=== PATIENT | female | born 1985 | race Caucasian/White ===

== ENCOUNTER 2016-08-03 13:32 | Emergency (ER) | payer MEDICAID ==
[~2016-08-03] VITALS: Ht 149.9 cm; Wt 72.5 kg
[~2016-08-03 13:32] MED LIST: BEN50 PO; HYDR2TAB3 PO; LORA1TAB PO; PRED10TA PO
[2016-08-03 13:33] VITALS: Ht 149.9 cm; Wt 72.5 kg
[2016-08-03] MEDS ORDERED: SOD CHLORIDE 0.9% 1,000 ML IV STA (14:45)
[2016-08-03] MEDS ORDERED: HYDROmorphONE 1 MG/ML SYG IV STA (14:45)
[2016-08-03] MEDS ORDERED: DIPHENHYDRAMINE 50 MG INJ IV STA (14:45)
[2016-08-03] MEDS ORDERED: DEXAMETHASONE 10 MG/ML 1 ML INJ IV ONE (15:00)
[2016-08-03] MEDS ORDERED: HYDROmorphONE 1 MG/ML SYG IM STA (16:02)
[2016-08-03] MEDS ORDERED: DIPHENHYDRAMINE 50 MG INJ ONE (16:04)
[2016-08-03] MEDS ORDERED: DEXAMETHASONE 10 MG/ML 1 ML INJ ONE (16:05)
[2016-08-03] MEDS ORDERED: HYDROmorphONE 1 MG/ML SYG ONE (16:05)
[2016-08-03] MEDS ORDERED: DIPHENHYDRAMINE 50 MG INJ IM ONE (16:30)
[2016-08-03] MEDS ORDERED: DEXAMETHASONE 10 MG/ML 1 ML INJ IM ONE (16:30)
[2016-08-03 17:00] VITALS: BP 122/86; PULSE 86; RESP 18
--- NOTE | 2016-08-03 17:01 | ERD ---
ER Documentation Chief Complaint Date/Time DATE: 08/03/16 TIME: 16:56 Chief Complaint HEADACHE 10/10 PAIN STARTING LAST NIGHT. HPI 31-year-old female with a past medical history of Temporal arteritis, Hodgkin's lymphoma, seizures presents to the ED complaining of a headache predominantly on the right temporal region. Reports that she feels like the right temples are getting swollen. States that the pain is worse when she is taking a warm shower. Describes a sensation as a luggage type of feeling and rates it a 10 out of 10. Reports that this feels like her exacerbation of her temporal arteritis. Denies any head or neck injuries. Denies any loss of consciousness. States that when she does get an exacerbation usually 1 mg Dilaudid, 10 mg Decadron and 50 mg Benadryl usually resolves her pain. Denies any fever, chills, neck stiffness, neck pain, shortness of breath, chest pain. Reports that she has prednisone at home. ROS All systems reviewed and are negative except as per history of present illness. Medications Home Meds Reported Medications Lorazepam* (Lorazepam*) 1 Mg Tablet, 1 MG PO HS Y for ANXIETY, #30 TAB 04/30/16 Prednisone* (Prednisone*) 10 Mg Tab, 10 MG PO, TAB 04/30/16 Hydromorphone Hcl* (Hydromorphone Hcl*) 2 Mg Tablet, 2 MG PO Q8 Y for PAIN, TAB 03/28/16 Diphenhydramine Hcl* (Benadryl*) 50 Mg Cap, 50 MG PO Q8 Y for ITCHING, CAP 03/28/16 Allergies Allergies: Coded Allergies: prochlorperazine (Verified Allergy, Severe, 04/30/16) metoclopramide HCl (Verified Allergy, Unknown, ANAPHYLACTIC, 04/30/16) topiramate (Verified Allergy, Unknown, ANAPHYLACTIC, 04/30/16) methylprednisolone (Verified Adverse Reaction, Unknown, pt. states tremayne arm numbness, 08/03/16) PMhx/Soc History of Surgery: Yes (Craniotomy, X2,Biopsy) Anesthesia Reaction: No Hx Neurological Disorder: Yes (Temporal Arteritis) Hx Respiratory Disorders: No Hx Cardiac Disorders: No Hx Psychiatric Problems: No Hx Miscellaneous Medical Probl: Yes (hx Hodgkin's Lymphoma,Chemo/Rad Txs) Hx Alcohol Use: No Hx Substance Use: No Hx Tobacco Use: No Physical Exam Vitals Vital Signs Date Time Temp Pulse Resp B/P Pulse Ox O2 Delivery O2 Flow Rate FiO2 08/03/16 17:00 86 18 122/86 99 Room Air 08/03/16 13:33 98.7 87 16 126/87 100 Physical Exam Const: [id number], well-nourished. In no acute distress. Head: Atraumatic, normocephalic Eyes: Normal Conjunctiva without injection. No purulent discharge. PERRLA. EOMI ENT: Normal external ear. Ear canal without erythema. Tympanic membrane pearly montano without effusion or bulging. Nasal canal clear with normal turbinates. Moist oropharynx without tonsillar exudates. Non-erythematous pharynx. Uvula midline. No drooling. No trismus. Neck: No cervical midline tenderness. Full range of motion. No meningismus. No cervical lymphadenopathy. No JVD. Resp: Clear to auscultation bilaterally. No wheezing, rhonchi, rales, or crackles. No accessory muscle use. No retractions. Cardio: Regular rate and rhythm. No murmurs, rubs or gallops. Abd: Soft, non tender, non distended. Normal bowel sounds. No palpable masses. No rebound tenderness. No guarding. Negative McBurney's Point. Negative Rodríguez's Sign. Skin: Normal skin turgor. No petechiae or rashes Back: No midline tenderness. No CVA tenderness. Ext: No cyanosis, or edema. Distal pulses intact bilaterally. Neur: Awake and alert. Normal gait. Normal coordination. Cranial Nerves II- VII intact. Normal finger to nose. Muscle strength 5/5. Sensation intact. Psych: Normal Mood and Affect Results 24 hrs Current Medications Medications (Trade) Dose Ordered Sig/Dedra Route PRN Reason Start Time Stop Time Status Last Admin Dose Admin Sodium Chloride (NS) 1,000 ml @ 1,000 mls/hr Q1H STAT IV 08/03/16 14:45 08/03/16 15:44 Cancel Hydromorphone HCl (Dilaudid) 1 mg ONCE STAT IV 08/03/16 14:45 08/03/16 14:46 Cancel Diphenhydramine HCl (Benadryl) 25 mg ONCE STAT IV 08/03/16 14:45 08/03/16 14:46 Cancel Dexamethasone (Decadron) 10 mg ONCE ONCE IV 08/03/16 15:00 08/03/16 15:01 Cancel Diphenhydramine HCl (Benadryl) 25 mg ONCE ONCE IM 08/03/16 16:30 08/03/16 16:31 DC 08/03/16 16:09 Dexamethasone (Decadron) 10 mg ONCE ONCE IM 08/03/16 16:30 08/03/16 16:31 DC 08/03/16 16:09 Hydromorphone HCl (Dilaudid) 1 mg ONCE STAT IM 08/03/16 16:02 08/03/16 16:04 DC 08/03/16 16:10 Diphenhydramine HCl (Benadryl) 50 mg STK-MED ONCE .ROUTE 08/03/16 16:04 08/05/16 16:26 DC Hydromorphone HCl (Dilaudid) 1 mg STK-MED ONCE .ROUTE 08/03/16 16:05 08/05/16 16:26 DC Dexamethasone (Decadron) 10 mg STK-MED ONCE .ROUTE 08/03/16 16:05 08/05/16 16:26 DC Procedures/MDM 31-year-old female with a past medical history of seizures, temporal arteritis, Hodgkin's Lymphoma presents the ED complaining of a headache that feels like an exacerbation of her temporal arteritis. Patient is afebrile and nontoxic- appearing. Patient has normal vital signs. At this time the nurses attempted to put an IV line into patient for the orders of IV Benadryl, Decadron, Dilaudid. However it was difficult for an IV to be started for this patient. Therefore the orders were changed to IM. This treatment improved patient's symptoms. Reports that she has prednisone at home. Low suspicion for intracranial bleed, seizures, meningitis, TIA, stroke, subarachnoid hemorrhage, epidural hematoma, subdural hematoma or other emergent conditions. Discharge medications: Patient stated that she has prednisone at home. This was discussed with my supervising physician, Dr. Avitia. Stated that patient can be managed on outpatient basis. Follow up with primary care physician in 1-2 days for a referral to a neurologist. Instructed patient to return to the ED sooner for any worsening symptoms. Patient's questions were answered. Patient understood and agreed with discharge plan. Patient discharged stable. Departure Diagnosis: Primary Impression: Headache Headache type: unspecified Headache chronicity pattern: unspecified pattern Intractability: not intractable Qualified Code: R51 - Nonintractable headache, unspecified chronicity pattern, unspecified headache type Condition: Stable Patient Instructions: Headache, Unspecified, Temporal Arteritis Referrals: FOR[facility], [facility] YOU HAVE RECEIVED A MEDICAL SCREENING EXAM AND THE RESULTS INDICATE THAT YOU DO NOT HAVE A CONDITION THAT REQUIRES URGENT TREATMENT IN THE EMERGENCY DEPARTMENT. FURTHER EVALUATION AND TREATMENT OF YOUR CONDITION CAN WAIT UNTIL YOU ARE SEEN IN YOUR DOCTORS OFFICE WITHIN THE NEXT 1-2 DAYS. IT IS YOUR RESPONSIBILITY TO MAKE AN APPOINTMENT FOR FOLOW-UP CARE. IF YOU HAVE A PRIMARY DOCTOR --you should call your primary doctor and schedule an appointment IF YOU DO NOT HAVE A PRIMARY DOCTOR YOU CAN CALL OUR PHYSICIAN REFERRAL HOTLINE AT IF YOU CAN NOT AFFORD TO SEE A PHYSICIAN YOU CAN CHOSE FROM THE FOLLOWING [facility] [address] [facility] [address] [employer] [facility] [address] [facility] [address] [facility] [address] [facility] [facility] [address] [facility]. [facility] YOU HAVE RECEIVED A MEDICAL SCREENING EXAM AND THE RESULTS INDICATE THAT YOU DO NOT HAVE A CONDITION THAT REQUIRES URGENT TREATMENT IN THE EMERGENCY DEPARTMENT. FURTHER EVALUATION AND TREATMENT OF YOUR CONDITION CAN WAIT UNTIL YOU ARE SEEN IN YOUR DOCTORS OFFICE WITHIN THE NEXT 1-2 DAYS. IT IS YOUR RESPONSIBILITY TO MAKE AN APPOINTMENT FOR FOLOW-UP CARE. IF YOU HAVE A PRIMARY DOCTOR --you should call your primary doctor and schedule and appointment IF YOU DO NOT HAVE A PRIMARY DOCTOR YOU CAN CALL OUR PHYSICIAN REFERRAL HOTLINE AT . IF YOU CAN NOT AFFORD TO SEE A PHYSICIAN YOU CAN CHOSE FROM THE FOLLOWING [facility] INSTITUTIONS: [address] [place] [address] [facility] [address] [place] [address] [facility] + [facility] [address] [place] [address] [facility] URGENT CARE/SPECIALTIES Additional Instructions: FOLLOW UP WITH YOUR PRIMARY CARE PHYSICIAN TOMORROW.Return to this facility if you are not improving as expected. ELMA URIAS PA-C Aug 03, 2016 17:01
== END 2016-08-03 17:00 | disposition home or self-care (01) ==
LOC: FTE 13:32
DX: R51 Headache (principal); Z85.71 Personal history of Hodgkin lymphoma
CPT/HCPCS: J1100; J1170; J1200; 96372; J7030

== ENCOUNTER 2016-09-11 08:56 | Emergency (ER) | payer OTHER ==
[~2016-09-11] VITALS: Ht 152.4 cm; Wt 73.5 kg
[2016-09-11 08:58] VITALS: Ht 152.4 cm; Wt 73.5 kg
[2016-09-11] MEDS ORDERED: HYDROmorphONE 2 MG/ML SYG IM STA (09:43)
[2016-09-11] MEDS ORDERED: DIPHENHYDRAMINE 50 MG INJ IM ONE (10:00)
--- NOTE | 2016-09-11 10:01 | ERD ---
ER Documentation Chief Complaint Date/Time DATE: 09/11/16 TIME: 09:45 Chief Complaint Complains of severe headache x 1 week HPI This 31-year-old male presents with a significant history of temporal arteritis confirmed by biopsy and craniotomy right side. She is under the care of a neurologist. Her recent sed rate was 10 has a prescription for intermittent steroid burst although her neurologist would like to continue without steroids. She takes Dilaudid 4 mg tablets and Benadryl at home for her current symptoms as she is having some swelling and pain worsening over the last week. 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 She is requesting injection until she can poultry picking machine tender the remainder of her medication tomorrow. Patient denies any fevers. She does have some vomiting which is relieved with Benadryl. ROS All systems reviewed and are negative except as per history of present illness. Medications Home Meds Reported Medications Lorazepam* (Lorazepam*) 1 Mg Tablet, 1 MG PO HS Y for ANXIETY, #30 TAB 04/30/16 Prednisone* (Prednisone*) 10 Mg Tab, 10 MG PO, TAB 04/30/16 Hydromorphone Hcl* (Hydromorphone Hcl*) 2 Mg Tablet, 2 MG PO Q8 Y for PAIN, TAB 03/28/16 Diphenhydramine Hcl* (Benadryl*) 50 Mg Cap, 50 MG PO Q8 Y for ITCHING, CAP 03/28/16 Allergies Allergies: Coded Allergies: prochlorperazine (Verified Allergy, Severe, 04/30/16) metoclopramide HCl (Verified Allergy, Unknown, ANAPHYLACTIC, 04/30/16) topiramate (Verified Allergy, Unknown, ANAPHYLACTIC, 04/30/16) methylprednisolone (Verified Adverse Reaction, Unknown, pt. states tremayne arm numbness, 08/03/16) PMhx/Soc Medical and Surgical Hx: pt denies Medical Hx, pt denies Surgical Hx History of Surgery: Yes (Craniotomy, X2,Biopsy) Anesthesia Reaction: No Hx Neurological Disorder: Yes (Temporal Arteritis) Hx Respiratory Disorders: No Hx Cardiac Disorders: No Hx Psychiatric Problems: No Hx Miscellaneous Medical Probl: Yes (hx Hodgkin's Lymphoma,Chemo/Rad Txs) Hx Alcohol Use: No Hx Substance Use: No Hx Tobacco Use: No Physical Exam Vitals Vital Signs Date Time Temp Pulse Resp B/P Pulse Ox O2 Delivery O2 Flow Rate FiO2 09/11/16 08:58 97.9 82 20 120/71 100 Physical Exam Const: [] Alert, [id number]. Head: Atraumatic. There is some tenderness in the right hinduism without erythema or pulsatile lesions. There is a defect from previous craniotomy without crepitance. Eyes: Normal Conjunctiva ENT: Normal External Ears, Nose and Mouth. Neck: Full range of motion..~ No meningismus. Resp: Clear to auscultation bilaterally Cardio: Regular rate and rhythm, no murmurs Abd: Soft, non tender, non distended. Normal bowel sounds Skin: No petechiae or rashes Back: No midline or flank tenderness Ext: No cyanosis, or edema Neur: Awake and alert Psych: Normal Mood and Affect Results 24 hrs Current Medications Medications (Trade) Dose Ordered Sig/Dedra Route PRN Reason Start Time Stop Time Status Last Admin Dose Admin Hydromorphone HCl (Dilaudid) 2 mg ONCE STAT IM 09/11/16 09:43 09/11/16 09:44 DC 09/11/16 09:47 Diphenhydramine HCl (Benadryl) 50 mg ONCE ONCE IM 09/11/16 10:00 09/11/16 10:01 09/11/16 09:48 Procedures/MDM Patient presents with a history of temporal arteritis and headaches in the care of neurologist. She does have adequate outpatient pain management by history. She will be given 1 injection of Dilaudid and Benadryl here until her pharmacist receives her prescription. She is not requesting any prescription and has a prescription of prednisone at home if necessary for acute flareups of temporal arteritis.. Her current bottle does verify partial fill. patient shows no signs or symptoms to suggest need for further evaluation or intervention currently but patient should return for fevers, worsening headache, vomiting despite treatment, new worsening symptoms as directed after instructions. No evidence of signs of meningitis, intracranial bleeding, mass-effect, neurologic deficit. Departure Diagnosis: Primary Impression: Temporal arteritis Condition: Stable Patient Instructions: Headache, Unspecified, Temporal Arteritis Additional Instructions: Recheck for new or worsening symptoms or continue medication and follow-up with primary doctor as scheduled NAZARIO PULIDO MD Sep 11, 2016 09:48
== END 2016-09-11 10:19 | disposition home or self-care (01) ==
LOC: FTE 08:56
DX: M31.6 Other giant cell arteritis (principal); Z85.71 Personal history of Hodgkin lymphoma
CPT/HCPCS: J1170; J1200; 96372

== ENCOUNTER 2016-09-28 12:38 | Emergency (ER) | payer OTHER ==
[~2016-09-28] VITALS: Ht 149.9 cm; Wt 70.8 kg
[2016-09-28 13:04] VITALS: Ht 149.9 cm; Wt 70.8 kg
[2016-09-28] MEDS ORDERED: HYDROmorphONE 1 MG/ML SYG IM STA ×2 (13:32→15:41)
--- NOTE | 2016-09-28 13:46 | ERD ---
ER Documentation Chief Complaint Date/Time DATE: 09/28/16 TIME: 13:42 Chief Complaint hx of teporal arteritis, seizure today 1 hour ago. HPI This is a 31-year-old with a long-standing history of seizures due to temporal arteritis. The patient had temporal arteritis and is developed chronic headaches and seizures from this. She says she gets headaches 2 or 3 times a week and that if not controlled with Ativan and Dilaudid orally she will end up having a seizure. She said she has had this many times in the past. She says that she has a headache with a prodrome of flashing lights and if not taking control of with medications she will proceed to have a seizure. She said today' s incident is the same. She is out of her Dilaudid pills and Ativan pills. She got a headache and try to take Motrin but it did not work. She proceeded to have flashing lights and she knew that she was going to have a seizure shows she gave her baby to the dad and she laid down on the floor where she proceeded to have a general tonic-clonic seizure for 1 minute. With a brief postictal state. The patient says she feels fine now but has a mild diffuse headache consistent with her prior headaches that she always gets. She is asking for Benadryl, Ativan, Dilaudid intramuscularly to control her headache. She says this is exactly like prior presentations and no different. She said she knew she is going to have a seizure because she was out of her medications and she was unable to get to her doctor in time this week. ROS All systems reviewed and are negative except as per history of present illness. Medications Home Meds Discontinued Reported Medications Lorazepam* (Lorazepam*) 1 Mg Tablet, 1 MG PO HS Y for ANXIETY, #30 TAB 04/30/16 Prednisone* (Prednisone*) 10 Mg Tab, 10 MG PO, TAB 04/30/16 Hydromorphone Hcl* (Hydromorphone Hcl*) 2 Mg Tablet, 2 MG PO Q8 Y for PAIN, TAB 03/28/16 Diphenhydramine Hcl* (Benadryl*) 50 Mg Cap, 50 MG PO Q8 Y for ITCHING, CAP 03/28/16 Allergies Allergies: Coded Allergies: prochlorperazine (Verified Allergy, Severe, 09/28/16) metoclopramide HCl (Verified Allergy, Unknown, ANAPHYLACTIC, 09/28/16) topiramate (Verified Allergy, Unknown, ANAPHYLACTIC, 09/28/16) methylprednisolone (Verified Adverse Reaction, Unknown, pt. states tremayne arm numbness, 09/28/16) PMhx/Soc History of Surgery: Yes (Craniotomy, X2,Biopsy) Anesthesia Reaction: No Hx Neurological Disorder: Yes (Temporal Arteritis) Hx Respiratory Disorders: No Hx Cardiac Disorders: No Hx Psychiatric Problems: No Hx Miscellaneous Medical Probl: Yes (hx Hodgkin's Lymphoma,Chemo/Rad Txs) Hx Alcohol Use: No Hx Substance Use: No Hx Tobacco Use: No Smoking Status: Never smoker FmHx Family History: No coronary disease Physical Exam Vitals Vital Signs Date Time Temp Pulse Resp B/P Pulse Ox O2 Delivery O2 Flow Rate FiO2 09/28/16 13:04 98.2 85 20 122/90 100 Physical Exam Const: Well-developed, well-nourished, awake and alert no acute distress smiles and laughs Head: Atraumatic, normocephalic Eyes: Normal Conjunctiva, PERRLA, EOMI, normal sclera, no nystagmus ENT: Normal External Ears, Nose and Mouth, moist mucus membranes. Neck: Full range of motion. No meningismus, no lymphadenopathy. Resp: Clear to auscultation bilaterally, no wheezing, rhonchi, rales Cardio: Regular rate and rhythm, no murmurs, S1 S2 present Abd: Soft, non tender x 4, non distended. Normal bowel sounds, no guarding or rebound, no pulsitile abdominal masses or bruits Skin: No petechiae or rashes, no ecchymosis , no maculopapular rash Back: No midline or flank tenderness Ext: No cyanosis, or edema, FROM x 4, normal inspection, neurovascularly intact x 4 Neur: Awake and alert, STR 5/5 x 4, sensation intact x 4, no focal findings, cerebellum intact Psych: Normal Mood and Affect Results 24 hrs Current Medications Medications (Trade) Dose Ordered Sig/Dedra Route PRN Reason Start Time Stop Time Status Last Admin Dose Admin Hydromorphone HCl (Dilaudid) 2 mg ONCE STAT IM 09/28/16 13:32 09/28/16 13:34 DC 09/28/16 13:51 Diphenhydramine HCl (Benadryl) 25 mg ONCE ONCE IM 09/28/16 14:00 09/28/16 14:01 DC 09/28/16 13:51 Lorazepam (Ativan) 1 mg ONCE ONCE IM 09/28/16 14:00 09/28/16 14:01 DC 09/28/16 13:51 Procedures/MDM Do not feel like this patient needs any workup. The patient has been through this same episode many times. We will provide her with medication stated in the HPI and prescriptions as well. Once her headache is better and she feels adequate we will discharge her home with Ativan and hydromorphone prescription. Again, her headache is very mild and typical for her and not anything new or concerning symptomatology peacock Departure Diagnosis: Primary Impression: Seizure Additional Impression: Headache Headache type: unspecified Headache chronicity pattern: chronic headache Intractability: not intractable Qualified Code: R51 - Chronic nonintractable headache, unspecified headache type Condition: Stable FELIX ROUSE DO Sep 28, 2016 13:46
[2016-09-28] MEDS ORDERED: LORAZEPAM 2 MG INJ IM ONE (14:00)
[2016-09-28] MEDS ORDERED: DIPHENHYDRAMINE 50 MG INJ IM ONE ×2 (14:00→16:00)
[2016-09-28] MEDS ORDERED: HYDR-902 PO (15:44)
[2016-09-28] MEDS ORDERED: LORA1TAB PO (15:44)
[2016-09-28 16:03] VITALS: BP 118/79; PULSE 73; RESP 20; TEMP 98.4
== END 2016-09-28 16:09 | disposition home or self-care (01) ==
LOC: E/R 12:38
DX: R56.9 Unspecified convulsions (principal)
CPT/HCPCS: 96372; J1170; J1200; J2060; Z7502

== ENCOUNTER 2016-10-05 23:20 | Emergency (ER) | payer OTHER ==
[~2016-10-05] VITALS: Ht 152.4 cm; Wt 68.1 kg
[~2016-10-05 23:20] MED LIST changes: -BEN50 PO; +HYDR-902 PO; -HYDR2TAB3 PO; -PRED10TA PO
[2016-10-05 23:26] VITALS: Ht 152.4 cm; Wt 68.1 kg
[2016-10-05] MEDS ORDERED: HYDROmorphONE 1 MG/ML SYG IM STA (23:54)
[2016-10-05] MEDS ORDERED: ONDANSETRON (ODT) 4 MG TAB ODT STA (23:54)
[2016-10-05] MEDS ORDERED: ONDA4TAB14 PO (23:58)
[2016-10-06] MEDS ORDERED: LORAZEPAM 2 MG INJ IM ONE
--- NOTE | 2016-10-06 00:16 | ERD ---
ER Documentation Chief Complaint Date/Time DATE: 10/06/16 TIME: 00:12 Chief Complaint Presyncopal episode X1 TODAY STATES WHEN HER HEADACHES ARE BAD RAN OUT OF ATIVAN HPI 31-year-old female presents here in emergency department for complaints of nausea, headache, has had it chronically, worst today. Patient states that she ran out of her Dilaudid Ativan, also patient has been having nausea and vomiting. Patient had as presyncopal episode, felt really weak and almost passed out at work today. Patient states that it usually happens whenever she runs out of her medications, patient has history of temporal arteritis, has chronic headaches, patient states that she did not have any head injury, patient did have history of seizures before and that is why she is worried, she only gets seizures when she runs out of her medications, Ativan and Dilaudid. She is worried about this that is why she is here today. Patient states that her headache is chronic, and is the same whenever she has flareups of her temporal arteritis. Patient states that she has an appointment with neurology specialist and her primary care doctor tomorrow and will get all her medications tomorrow from them. Patient just wants medication to help with her symptoms right now. Patient discussed the pain as sharp pain, 9/10 scale, accompanied with nausea, mildly better whenever she takes her Dilaudid, did not take it today. ROS All systems reviewed and are negative except as per history of present illness. Medications Home Meds Active Scripts Ondansetron (Ondansetron Odt) 4 Mg Tab.rapdis, 4 MG PO Q8 Y for NAUSEA AND/OR VOMITING, #30 TAB Prov:JACKI MOSHER ASSISTANT GUEST SERVICES MANAGER 10/05/16 Hydrocodone/Acetaminophen ([place] 10-325 Tablet) 1 Each Tablet, 1 TAB PO Q6H Y for PAIN, #20 TAB Prov:LEMADDYOS,APOSTOLOS A. DO 09/28/16 Lorazepam* (Lorazepam*) 1 Mg Tablet, 1 MG PO Q8 Y for headache/seizure, #18 TAB Prov:LEMADDYOSAPOSTOLOS A. DO 09/28/16 Allergies Allergies: Coded Allergies: prochlorperazine (Verified Allergy, Severe, 09/28/16) metoclopramide HCl (Verified Allergy, Unknown, ANAPHYLACTIC, 09/28/16) topiramate (Verified Allergy, Unknown, ANAPHYLACTIC, 09/28/16) methylprednisolone (Verified Adverse Reaction, Unknown, pt. states tremayne arm numbness, 09/28/16) PMhx/Soc History of Surgery: Yes (Craniotomy, X2,Biopsy) Anesthesia Reaction: No Hx Neurological Disorder: Yes (Temporal Arteritis) Hx Respiratory Disorders: No Hx Cardiac Disorders: No Hx Psychiatric Problems: No Hx Miscellaneous Medical Probl: Yes (hx Hodgkin's Lymphoma,Chemo/Rad Txs) Hx Alcohol Use: No Hx Substance Use: No Hx Tobacco Use: No FmHx Family History: No coronary disease, No diabetes, No other Physical Exam Vitals Vital Signs Date Time Temp Pulse Resp B/P Pulse Ox O2 Delivery O2 Flow Rate FiO2 10/05/16 23:26 98.0 77 18 138/92 100 Physical Exam GENERAL: The patient is well developed and appropriate for usual state of health, in no apparent distress. CHEST: Clear to auscultation bilaterally. There are no rales, wheezes or rhonchi. HEART: Regular rate and rhythm. No murmurs, clicks, rubs or gallops. No S3 or S4. ABDOMEN: Soft, nontender and nondistended. Good bowel sounds. No rebound or guarding. No gross peritonitis. No gross organomegaly or masses. No Rodríguez sign or McBurney point tenderness. BACK: No midline or flank tenderness. EXTREMITIES: Equal pulses bilaterally. There is no peripheral clubbing, cyanosis or edema. No focal swelling or erythema. Full range of motion. Grossly neurovascularly intact. NEURO: Alert and oriented. Cranial nerves 2-12 intact. Motor strength in all 4 extremities with 5/5 strength. Sensation grossly intact. Normal speech and gait. Negative Romberg sign. Negative pronator drift. SKIN: There is no apparent rash or petechia. The skin is warm and dry. HEMATOLOGIC AND LYMPHATIC: There is no evidence of excessive bruising or lymphedema. No gross cervical, axillary, or inguinal lymphadenopathy. Results 24 hrs Current Medications Medications (Trade) Dose Ordered Sig/Dedra Route PRN Reason Start Time Stop Time Status Last Admin Dose Admin Hydromorphone HCl (Dilaudid) 1 mg ONCE STAT IM 10/05/16 23:54 10/05/16 23:56 DC Lorazepam (Ativan) 1 mg ONCE ONCE IM 10/06/16 00:00 3/6/17 00:01 DC Ondansetron HCl (Zofran Odt) 4 mg ONCE STAT ODT 10/05/16 23:54 10/05/16 23:56 DC Patient was given medication for pain here in emergency department, after treatment, patient verbalized feeling much better. Patient's pain is improved. Ativan was also given here in emergency department.Patient was given Zofran here in the emergency department. After treatment, patient was able to tolerate po fluids here in the emergency department without any vomiting. There is no signs and symptoms of dehydration. Procedures/MDM Medical Decision Making: Patient's symptoms most likely consistent with chronic pain from her chronic headache, most likely from her temporal arteritis flareup. Patient already has an appointment with neurology specialist and primary care doctor tomorrow to fill the rest of her prescription medication, patient was given medication here to control her pain. There is low suspicion for neurological emergencies at this time since patients neurologic exam is normal. Patient did not have any altered level consciousness, vomiting, changes in balance or memory and did not have any head injury. CT scan of the brain is indicated at this time, patient did not have any reinjury of the head, also patient states that she does not want it to be done since she has had multiple radiation exposure in her head. Patient was given Zofran prescription to help with nausea and vomiting, patient was advised to see primary care doctor and neurologist specialist as per appointment tomorrow. Departure Diagnosis: Primary Impression: Chronic headache Headache type: unspecified Intractability: not intractable Qualified Code: R51 - Chronic nonintractable headache, unspecified headache type Additional Impression: History of temporal arteritis Condition: Stable Patient Instructions: Headache, Unspecified Additional Instructions: see PMD and neurology specialist as per appt JACKI MOSHER NP Oct 06, 2016 00:15
[2016-10-06 00:25] VITALS: BP 121/85; PULSE 88; RESP 17; TEMP 98.1
== END 2016-10-06 03:57 | disposition home or self-care (01) ==
LOC: FTE 23:20
DX: R51 Headache (principal); R11.0 Nausea; Z85.71 Personal history of Hodgkin lymphoma; Z86.79 Personal history of other diseases of the circulatory system
CPT/HCPCS: 96372; J1170; J2060; Z7502; Z7610

== ENCOUNTER 2016-10-11 11:42 | Emergency (ER) | payer OTHER ==
[~2016-10-11] VITALS: Wt 72.0 kg
[~2016-10-11 11:42] MED LIST changes: +ONDA4TAB14 PO
[2016-10-11] MEDS ORDERED: ONDANSETRON (ODT) 4 MG TAB ODT STA (12:13)
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
== END 2016-10-11 13:00 | disposition left against medical advice (07) ==
LOC: FTE 11:42
DX: S09.90XA Unspecified injury of head, initial encounter (principal); V49.40XA Driver injured in collision with unspecified motor vehicles in traffic accident, initial encounter; Z72.89 Other problems related to lifestyle
CPT/HCPCS: Z7502; Z7610; 99282

== ENCOUNTER 2016-10-13 14:45 | Emergency (ER) | payer OTHER ==
[~2016-10-13] VITALS: Wt 69.0 kg
[2016-10-13] MEDS ORDERED: ONDANSETRON (ODT) 4 MG TAB ODT STA (15:35)
[2016-10-13] MEDS ORDERED: HYDR4TAB18 PO (15:49)
[2016-10-13] MEDS ORDERED: BEN50 PO (15:50)
[2016-10-13] MEDS ORDERED: LORA-444 PO (15:51)
--- NOTE | 2016-10-13 15:57 | ERD ---
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 NO NEURO DEFICIT HPI 31-year-old female history of chronic headaches, seizure disorder who presents with report of seizure. The patient describes multiple seizures over 2 week period. She states that she has been told to take Ativan and Dilaudid to prevent headaches so that she does not have a fever. She has a remote history of lymphoma status post chemo and radiation complicated by temporal arteritis. The patient states that her seizures today is very consistent with chronic seizures with a prodrome of vision changes, she does not recall the event, she has urinary incontinence. The patient states compliance with her medications. The patient is requesting pain medication for her headache to prevent seizures. She states that recently over the past several weeks she has had CT imaging including with and without contrast, EEG. She states that she has recently seen a neurologist who did not recommend seizure medications however she saw this neurologist prior to the seizures over the past several weeks. The patient is requesting IV or IM Dilaudid and Benadryl. The patient was here 2 days ago for headache requesting Dilaudid. ROS All systems reviewed and are negative except as per history of present illness. Medications Home Meds Active Scripts Ondansetron (Ondansetron Odt) 4 Mg Tab.rapdis, 4 MG PO Q8 Y for NAUSEA AND/OR VOMITING, #30 TAB Prov:JACKI MOSHER CONCESSION CASHIER 10/05/16 Hydrocodone/Acetaminophen ([place] 10-325 Tablet) 1 Each Tablet, 1 TAB PO Q6H Y for PAIN, #20 TAB Prov:FELIX ROUSE DO 09/28/16 Lorazepam* (Lorazepam*) 1 Mg Tablet, 1 MG PO Q8 Y for headache/seizure, #18 TAB Prov:RICHI ROUSESTRAYMUNDOS Jodee DO 09/28/16 Allergies Allergies: Coded Allergies: prochlorperazine (Verified Allergy, Severe, 10/13/16) metoclopramide HCl (Verified Allergy, Unknown, ANAPHYLACTIC, 10/13/16) topiramate (Verified Allergy, Unknown, ANAPHYLACTIC, 10/13/16) methylprednisolone (Verified Adverse Reaction, Unknown, pt. states tremayne arm numbness, 10/13/16) PMhx/Soc History of Surgery: Yes (Craniotomy, X2,Biopsy) Anesthesia Reaction: No Hx Neurological Disorder: Yes (Temporal Arteritis) Hx Respiratory Disorders: No Hx Cardiac Disorders: No Hx Psychiatric Problems: No Hx Miscellaneous Medical Probl: Yes (hx Hodgkin's Lymphoma,Chemo/Rad Txs) Hx Alcohol Use: No Hx Substance Use: No Hx Tobacco Use: No FmHx Family History: No diabetes Physical Exam Vitals Vital Signs Date Time Temp Pulse Resp B/P Pulse Ox O2 Delivery O2 Flow Rate FiO2 10/13/16 14:49 98.5 102 20 108/65 98 Physical Exam General: Well developed, well nourished, she is calm, conversive and in no distress Head: Normocephalic, atraumatic. Eyes: Pupils equally reactive, EOM intact ENT: Moist mucous membranes Neck: Supple, no lymphadenopathy Respiratory: Lungs clear bilaterally, no distress Cardiovascular: RRR, no murmurs, rubs, or gallops Abdominal: Soft, non-tender, non-distended, no peritoneal signs : Deferred MSK: No edema, no unilateral swelling, 5/5 strength Neurologic: Alert and oriented, moving all extremities, normal speech, no focal weakness, no cerebellar signs Skin: No rash Psych: Normal mood Results 24 hrs Current Medications Medications (Trade) Dose Ordered Sig/Dedra Route PRN Reason Start Time Stop Time Status Last Admin Dose Admin Ondansetron HCl (Zofran Odt) 4 mg ONCE STAT ODT 10/13/16 15:35 10/13/16 15:36 DC Hydromorphone HCl (Dilaudid) 4 mg ONCE ONCE PO 10/13/16 16:00 10/13/16 16:01 Procedures/MDM A combination of electronic medical record review, [employer] database review and patient behavior in the emergency room are concerning for drug-seeking and/or narcotic dependence behavior. In my opinion further use of IV or IM narcotics in this patient is not warranted unless clinical scenario changes. In addition , we should use caution prescribing chronic narcotic and/or benzodiazepine medications from the emergency room. A single provider should be dispensing this type of medication. The patient was informed. The patient's [employer] database does show some prescriptions filled by a primary care physician Dr. Larry Roland. However, the patient has multiple narcotics and benzodiazepines filled by different providers. Most recently on September 30. However the patient states that she feels prescriptions at [facility]. The phone # is [phone]. It appears the patient recently filled a total of 50 tablets of 4 mg Dilaudid on October 10, 2016. This was not reported in the patient's CURES database. Therefore it appears the patient is receiving more narcotic prescriptions easily visible. The patient also has had thorough workup for the seizures. They appear to be chronic, subacute. The patient also has had multiple recent imaging including CT, EEG. It has not been recommended that the patient takes antiepileptic medication. The patient is requesting IV and IM narcotics as well as IV and IM Benadryl. I do not believe that her symptoms require IV or IM narcotics. I am happy to provide the patient with her dose of 4 mg p.o. Dilaudid. However prescription will not be provided. Additionally, repeat visits to the emergency room for narcotics for her chronic pain are not in the patient's best interest. I will attempt to discuss the care with the patient's primary care physician Dr. Larry Roland. From a seizure standpoint the patient has no evidence of status epilepticus. This appears to be consistent with a chronic issue that is being well documented and well followed. There is no indication that laboratory testing or diagnostic imaging is necessary. The patient has Ativan at home for her prophylaxis. Outpatient follow-up with neurology is strongly recommended and again will be discussed with the patient's primary care doctor. It is very important note that prior to receiving the medication the patient cannot be found. It appears the patient has eloped. She was informed that she would not receive IV or IM narcotics and then left the emergency room. This is again excellent evidence that the patient's presentation is very consistent with drug-seeking behavior and chronic pain. I would strongly advise against the use of narcotics in this patient for her chronic issues in the future. She will be referred to the chronic pain management committee in order to develop a chronic pain management care plan. Departure Diagnosis: Primary Impression: Chronic pain Chronic pain type: chronic pain syndrome Qualified Code: G89.4 - Chronic pain syndrome Additional Impressions: Seizure disorder Drug-seeking behavior Condition: Stable Patient Instructions: Chronic Pain, Seizure, Recurrent [Adult] Referrals: JERAD HOANG MD, MARK P. MD [facility] YOU HAVE RECEIVED A MEDICAL SCREENING EXAM AND THE RESULTS INDICATE THAT YOU DO NOT HAVE A CONDITION THAT REQUIRES URGENT TREATMENT IN THE EMERGENCY DEPARTMENT. FURTHER EVALUATION AND TREATMENT OF YOUR CONDITION CAN WAIT UNTIL YOU ARE SEEN IN YOUR DOCTORS OFFICE WITHIN THE NEXT 1-2 DAYS. IT IS YOUR RESPONSIBILITY TO MAKE AN APPOINTMENT FOR FOLOW-UP CARE. IF YOU HAVE A PRIMARY DOCTOR --you should call your primary doctor and schedule an appointment IF YOU DO NOT HAVE A PRIMARY DOCTOR YOU CAN CALL OUR PHYSICIAN REFERRAL HOTLINE AT IF YOU CAN NOT AFFORD TO SEE A PHYSICIAN YOU CAN CHOSE FROM THE FOLLOWING [facility] [address] [facility] [facility] [address] [facility] [address] [facility] [facility] [address] [facility]. [facility] [address] [facility]. [facility] [address] [facility]. [facility] YOU HAVE RECEIVED A MEDICAL SCREENING EXAM AND THE RESULTS INDICATE THAT YOU DO NOT HAVE A CONDITION THAT REQUIRES URGENT TREATMENT IN THE EMERGENCY DEPARTMENT. FURTHER EVALUATION AND TREATMENT OF YOUR CONDITION CAN WAIT UNTIL YOU ARE SEEN IN YOUR DOCTORS OFFICE WITHIN THE NEXT 1-2 DAYS. IT IS YOUR RESPONSIBILITY TO MAKE AN APPOINTMENT FOR FOLOW-UP CARE. IF YOU HAVE A PRIMARY DOCTOR --you should call your primary doctor and schedule and appointment IF YOU DO NOT HAVE A PRIMARY DOCTOR YOU CAN CALL OUR PHYSICIAN REFERRAL HOTLINE AT . IF YOU CAN NOT AFFORD TO SEE A PHYSICIAN YOU CAN CHOSE FROM THE FOLLOWING [facility] INSTITUTIONS: [facility] [address] [place] [address] [facility] [address] [place] [address] [facility] [address] [place] [address] Additional Instructions: Call your primary care doctor TOMORROW for an appointment during the next 1 WEEK.Tell the medical secretary receptionist that you were referred from this facility.See the doctor sooner or return here if your condition worsens before your appointment time. OSWALDO TILLMAN MD Oct 13, 2016 15:56
[2016-10-13] MEDS ORDERED: HYDROmorphONE 4 MG TAB PO ONE (16:00)
== END 2016-10-13 16:21 | disposition left against medical advice (07) ==
LOC: E/R 14:45
DX: G89.4 Chronic pain syndrome (principal); G40.909 Epilepsy, unspecified, not intractable, without status epilepticus; Z72.89 Other problems related to lifestyle; Z85.71 Personal history of Hodgkin lymphoma
CPT/HCPCS: J1170; Z7502; Z7610; 99282

== ENCOUNTER 2016-12-20 14:52 | Emergency (ER) | payer OTHER ==
[~2016-12-20] VITALS: Ht 152.4 cm; Wt 69.0 kg
[~2016-12-20 14:52] MED LIST changes: +BEN50 PO; -HYDR-902 PO; +HYDR4TAB18 PO; +LORA-444 PO; -LORA1TAB PO; -ONDA4TAB14 PO
[2016-12-20 14:55] VITALS: Ht 152.4 cm; Wt 69.0 kg
[2016-12-20] MEDS ORDERED: HYDR-902 PO (15:29)
[2016-12-20] MEDS ORDERED: HYDROCODONE/APAP (10/325) TAB PO ONE (15:30)
[2016-12-20] MEDS ORDERED: morphine 10 MG INJ IM ONE (15:30)
[2016-12-20] MEDS ORDERED: DIPHENHYDRAMINE 25 MG CAP PO ONE (15:30)
--- NOTE | 2016-12-20 15:34 | ERD ---
ER Documentation Chief Complaint Date/Time DATE: 12/20/16 TIME: 15:31 Chief Complaint headache and seizure an hour ago , hx of seizure HPI This is a 31-year-old female with multiple past medical issues including chronic pain, drug-seeking behavior, giant cell arteritis, seizure disorder who presents with headache and describing need for pain medication. The patient states that she usually has seizures when she has a headache. She states her last seizure was 1 month ago. She is not currently taking anything for seizures and was discontinued on Dilantin multiple years ago. The patient states that she may have had a generalized tonic-clonic seizure approximately 2 hours prior to arrival. This is consistent with her prior seizure disorder. She states that she has a right-sided headache. The headache is similar nature in character to headaches in the past. She has no vision loss, no jaw claudication. She is not currently taking steroids. She denies any new medications, head trauma. No incontinence. The patient is requesting Im pain medication and IM Benadryl ROS All systems reviewed and are negative except as per history of present illness. Medications Home Meds Reported Medications Hydrocodone/Acetaminophen ([place] 10-325 Tablet) 1 Each Tablet, 1 TAB PO Q4 Y for PAIN LEVEL 6-10, TAB 12/20/16 Diphenhydramine Hcl* (Benadryl*) 50 Mg Cap, 50 MG PO Q6 Y for ITCHING, CAP 10/13/16 Discontinued Reported Medications Lorazepam* (Ativan*) 2 Mg Tablet, 2 MG PO Q8 Y for PRN, #60 TAB 10/13/16 Hydromorphone Hcl* (Dilaudid*) 4 Mg Tablet, 4 MG PO Q4H Y for PAIN, TAB 10/13/16 Allergies Allergies: Coded Allergies: prochlorperazine (Verified Allergy, Severe, 10/13/16) metoclopramide HCl (Verified Allergy, Unknown, ANAPHYLACTIC, 10/13/16) topiramate (Verified Allergy, Unknown, ANAPHYLACTIC, 10/13/16) methylprednisolone (Verified Adverse Reaction, Unknown, pt. states tremayne arm numbness, 10/13/16) PMhx/Soc History of Surgery: Yes (Craniotomy, X2,Biopsy) Anesthesia Reaction: No Hx Neurological Disorder: Yes (Temporal Arteritis) Hx Respiratory Disorders: No Hx Cardiac Disorders: No Hx Psychiatric Problems: No Hx Miscellaneous Medical Probl: Yes (hx Hodgkin's Lymphoma,Chemo/Rad Txs) Hx Alcohol Use: No Hx Substance Use: No Hx Tobacco Use: No Physical Exam Vitals Vital Signs Date Time Temp Pulse Resp B/P Pulse Ox O2 Delivery O2 Flow Rate FiO2 12/20/16 14:55 99.9 113 20 118/82 98 Physical Exam General: Well developed, well nourished, no acute distress Head: Normocephalic, atraumatic. Eyes: Pupils equally reactive, EOM intact ENT: Moist mucous membranes Neck: Supple, no lymphadenopathy Respiratory: Lungs clear bilaterally, no distress Cardiovascular: RRR, no murmurs, rubs, or gallops Abdominal: Soft, non-tender, non-distended, no peritoneal signs : Deferred MSK: No edema, no unilateral swelling, 5/5 strength Neurologic: Alert and oriented, moving all extremities, normal speech, no focal weakness, no cerebellar signs Skin: No rash Psych: Normal mood Results 24 hrs Current Medications Medications (Trade) Dose Ordered Sig/Dedra Route PRN Reason Start Time Stop Time Status Last Admin Dose Admin Morphine Sulfate (morphine) 4 mg ONCE ONCE IM 12/20/16 15:30 12/20/16 15:30 DC Diphenhydramine HCl (Benadryl) 25 mg ONCE ONCE PO 12/20/16 15:30 12/20/16 15:31 Acetaminophen/ Hydrocodone Bitart (Wat[place] (10/325)) 1 tab ONCE ONCE PO 12/20/16 15:30 12/20/16 15:31 Procedures/MDM A combination of electronic medical record review, [employer]ES database review and patient behavior in the emergency room are concerning for drug-seeking and/or narcotic dependence behavior. In my opinion further use of IV or IM narcotics in this patient is not warranted unless clinical scenario changes. In addition , we should use caution prescribing chronic narcotic and/or benzodiazepine medications from the emergency room. A single provider should be dispensing this type of medication. The patient was informed. The patient's LAINEY report shows greater than 22 visits in the last 12 months for pain related and medication refill reasons. Her [employer]ES database review is very concerning with significant number of refills of narcotic pain medication including most recently on 08 December for 60 tablets of Watson. Multiple different providers are noted. I do not believe that the patient requires laboratory testing as her seizures are consistent with chronic seizures. An Accu-Chek will be ordered. The patient has follow-up with her neurologist within 1 month. No indication to initiate Dilantin at this time. Continue to follow-up. It is somewhat questionable whether the patient truly had a seizure given her drug-seeking behavior. I do not believe the patient requires IV or IM narcotics. The patient was given Watson, oral Benadryl and will be discharged without a prescription. She was advised primary care follow-up. We discussed follow up with the patient's primary care doctor within 24 to 48 hours as needed. We also discussed return to the emergency room for worsening symptoms or worsening condition. Outpatient referral: Neurology appointment within 1 month Departure Diagnosis: Primary Impression: Seizure disorder Additional Impressions: Chronic pain Chronic pain type: other chronic pain Qualified Code: G89.29 - Other chronic pain Drug-seeking behavior Condition: Stable Patient Instructions: Seizure, Recurrent [Adult] Additional Instructions: Call your primary care doctor TOMORROW for an appointment during the next 1 WEEK.Tell the secretary of state that you were referred from this facility.See the doctor sooner or return here if your condition worsens before your appointment time. OSWALDO TILLMAN MD December 20, 2016 15:34
== END 2016-12-20 15:42 | disposition home or self-care (01) ==
LOC: E/R 14:52
DX: G40.909 Epilepsy, unspecified, not intractable, without status epilepticus (principal); Z72.89 Other problems related to lifestyle; Z85.72 Personal history of non-Hodgkin lymphomas
CPT/HCPCS: Z7502; Z7610; 99283

== ENCOUNTER 2018-10-02 15:55 | Inpatient (IN) | payer MEDICAID, OTHER ==
[~2018-10-02] VITALS: Ht 152.4 cm; Wt 67.2 kg
[~2018-10-02 15:55] MED LIST changes: +HYDR-3980 PO; -HYDR4TAB18 PO; -LORA-444 PO
[2018-10-02] MEDS ORDERED: HYDROmorphONE 1 MG/ML SYG IV STA (16:11)
[2018-10-02] MEDS ORDERED: SOD CHLORIDE 0.9% 1,000 ML IV STA (16:11)
[2018-10-02] MEDS ORDERED: ONDANSETRON 4 MG INJ IV STA (16:11)
[2018-10-02] MEDS ORDERED: HYDROmorphONE 2 MG/ML SYG IV STA (16:26)
[2018-10-02] MEDS ORDERED: LORAZEPAM 2 MG INJ IV ONE (16:30)
[2018-10-02] MEDS ORDERED: DIPHENHYDRAMINE 50 MG INJ IV ONE (16:30)
[2018-10-02] MEDS ORDERED: PHENYTOIN 1,000 MG in SOD CHLORIDE 0.9% 80 ML IVPB STA (17:24)
[2018-10-02] MEDS ORDERED: SOD CHLORIDE 0.9% 500 ML IV STA (18:04)
[2018-10-02] MEDS ORDERED: LORA-444 PO (18:22)
[2018-10-02] MEDS ORDERED: PHEN300C2 PO (18:22)
[2018-10-02] MEDS ORDERED: HYDR4TAB51 PO (18:22)
[2018-10-02] MEDS ORDERED: ONDANSETRON 4 MG INJ IV PRN (18:30)
[2018-10-02] MEDS ORDERED: morphine 2 MG INJ IV PRN (18:30)
[2018-10-02] MEDS ORDERED: HYDROCODONE/APAP (5/325) TAB PO PRN (18:30)
[2018-10-02] MEDS ORDERED: ACETAMINOPHEN 325 MG TAB PO PRN (18:30)
[2018-10-02] MEDS ORDERED: NACL 0.9% 3 ML SYG IV SCH (18:30)
--- NOTE | 2018-10-02 18:42 | ERD ---
ER Documentation Chief Complaint Chief Complaint Pt reports MICHAEL and seizure x 1 hour ago HPI This is a 33-year-old female with a known history of epilepsy. The patient has had previous craniotomies and biopsy for temporal arteritis. First when she was 21 months of age and when she was 23 years of age for removal of a glioblastoma. The patient has a neurologist who she follows up with on a regular basis and takes Dilantin for her seizures. Earlier today she states however that she had to tonic-clonic seizures both witnessed and lasted for several minutes. She states she did fall and hit her head. She is complaining of a headache. She states however this is not the worst headache of her life. The headache began after the seizure. She stated she hit her head against a wall in the house. She has been compliant with her medications. She has had no fevers or shaking or chills. She denies any neck pain. The patient does take opiates for chronic pain. ROS All systems reviewed and are negative except as per history of present illness. Medications Home Meds Reported Medications Hydromorphone Hcl* (Dilaudid*) 4 Mg Tablet, 4 MG PO BID PRN for PAIN, TAB 10/02/18 Lorazepam* (Ativan*) 2 Mg Tablet, 2 MG PO DAILY PRN for ANXIETY, #30 TAB 10/02/18 Phenytoin* Sodium Extended (Dilantin*) 300 Mg Capsule, 300 MG PO BID, CAP 10/02/18 Discontinued Reported Medications Hydrocodone/Acetaminophen ([place] 10-325 Tablet) 1 Each Tablet, 1 TAB PO Q4 PRN for PAIN LEVEL 6-10, TAB 12/20/16 Diphenhydramine Hcl* (Benadryl*) 50 Mg Cap, 50 MG PO Q6 PRN for ITCHING, CAP 10/13/16 Allergies Allergies: Coded Allergies: prochlorperazine (Verified Allergy, Severe, 10/13/16) metoclopramide HCl (Verified Allergy, Unknown, ANAPHYLACTIC, 10/13/16) topiramate (Verified Allergy, Unknown, ANAPHYLACTIC, 10/13/16) methylprednisolone (Verified Adverse Reaction, Unknown, pt. states tremayne arm numbness, 10/13/16) PMhx/Soc History of Surgery: Yes (Craniotomy, X2,Biopsy) Anesthesia Reaction: No Hx Neurological Disorder: Yes (Temporal Arteritis , SEIZURES ) Hx Respiratory Disorders: No Hx Cardiac Disorders: No Hx Psychiatric Problems: No Hx Miscellaneous Medical Probl: Yes (hx Hodgkin's Lymphoma,Chemo/Rad Txs) Hx Alcohol Use: No Hx Substance Use: No Hx Tobacco Use: No Smoking Status: Never smoker Physical Exam Vitals Vital Signs Date Temp Pulse Resp B/P (MAP) Pulse Ox O2 O2 Flow FiO2 Time Delivery Rate 10/02/18 88 18 116/86 98 Room Air 16:42 (96) 10/02/18 98.4 102 16 133/90 100 16:04 (104) Physical Exam Constitutional:Well-developed. Well-nourished. HEENT:Normocephalic. Atraumatic.Pupils were equal round reactive to light. Moist mucous membranes.No tonsillar exudates. No nasal septal hematoma. No hemotympanum. Neck: No nuchal rigidity. No lymphadenopathy. No posterior cervical spine tenderness or step-offs. Respiratory: Not using accessory muscles of respiration.Lungs were clear to auscultation bilaterally. No rhonchi. No rales. No wheezing. Cardiovascular: Regular rate regular rhythm.No murmurs. No rubs were appreciated.S1, S2 normal. Distal pulses are palpable 2+ bilaterally. GI: Abdomen was soft. Nontender. Non Distended. No pulsatile abdominal masses or bruits. No rebound. No guarding. Bowel sounds were present and normal. Muscle skeletal: Full range of motion of both the upper and lower extremities bilaterally.Normal muscle tone.No assymetrical calf tenderness or swelling. Skin: No petechia, no purpura. No lesions on the palms or the soles of the feet. No maculopapular rash. NEURO: Patient was alert, awake, orientated x3.No facial droop. Gait observed and normal with no ataxia.Speech had regular rate and rhythm. No focal neurological deficits. Result Diagram: 10/02/18 8132 Results 24 hrs Laboratory Tests Test 10/02/18 17:26 10/02/18 17:39 Urine Color YELLOW Urine Clarity CLOUDY Urine pH 6.0 Urine Specific Ruby 1.024 Urine Ketones TRACE mg/dL Urine Nitrite NEGATIVE mg/dL Urine Bilirubin NEGATIVE mg/dL Urine Urobilinogen 1+ mg/dL Urine Leukocyte Esterase NEGATIVE Mario/ul Urine Microscopic RBC 0 /HPF Urine Microscopic WBC 2 /HPF Urine Squamous Epithelial Cells MANY /HPF Urine Mucus MANY /HPF Urine Hemoglobin NEGATIVE mg/dL Urine Glucose NEGATIVE mg/dL Urine Total Protein NEGATIVE mg/dl White Blood Count 11.0 10^3/ul Red Blood Count 4.41 10^6/ul Hemoglobin 12.4 g/dl Hematocrit 38.3 % Mean Corpuscular Volume 86.8 fl Mean Corpuscular Hemoglobin 28.1 pg Mean Corpuscular Hemoglobin Concent 32.4 g/dl Red Cell Distribution Width 12.8 % Platelet Count 416 10^3/UL Mean Platelet Volume 9.4 fl Immature Granulocytes % 0.500 % Neutrophils % 79.0 % Lymphocytes % 16.5 % Monocytes % 3.3 % Eosinophils % 0.4 % Basophils % 0.3 % Nucleated Red Blood Cells % 0.0 /100WBC Immature Granulocytes # 0.050 10^3/ul Neutrophils # 8.7 10^3/ul Lymphocytes # 1.8 10^3/ul Monocytes # 0.4 10^3/ul Eosinophils # 0.0 10^3/ul Basophils # 0.0 10^3/ul Nucleated Red Blood Cells # 0.0 10^3/ul Prothrombin Time 14.0 Sec Prothrombin Time Ratio 1.1 INR International Normalized Ratio 1.07 Activated Partial Thromboplast Time 40.5 Sec POC Beta HCG, Qualitative NEGATIVE Current Medications Medications Dose Sig/Dedra Start Time Status Last (Trade) Ordered Route PRN Stop Time Admin Dose Reason Admin Sodium 1,000 ml @ Q1H STAT 10/02/18 DC 10/02/18 Chloride 1,000 mls/hr IV 16:11 10/02/18 16:32 17:10 1 mg ONCE STAT 10/02/18 Cancel Hydromorphone IV 16:11 10/02/18 HCl 16:12 (Dilaudid) Ondansetron 4 mg ONCE STAT 10/02/18 Cancel HCl (Zofran IV 16:11 10/02/18 Inj) 16:12 50 mg ONCE ONCE 10/02/18 DC 10/02/18 Diphenhydrami IV 16:30 10/02/18 16:32 ne HCl 16:31 (Benadryl) 2 mg ONCE STAT 10/02/18 DC 10/02/18 Hydromorphone IV 16:26 10/02/18 16:32 HCl 16:28 (Dilaudid) Lorazepam 2 mg ONCE ONCE 10/02/18 DC 10/02/18 (Ativan) IV 16:30 10/02/18 16:32 16:31 Phenytoin 100 ml @ ONCE STAT 10/02/18 DC 10/02/18 1000 mg/ 200 mls/hr IVPB 17:24 10/02/18 17:50 Sodium 17:53 Chloride Sodium 500 ml @ Q1H STAT 10/02/18 10/02/18 Chloride 500 mls/hr IV 18:04 10/02/18 18:15 19:03 Sodium 1,000 ml @ Q20H IV 10/02/18 UNV Chloride 50 mls/hr 18:22 IV Flush 3 ml PER 10/02/18 UNV (NS 3 ml) PROTOCOL IV 18:30 Ondansetron 4 mg Q6H PRN 10/02/18 UNV HCl (Zofran IV 18:30 Inj) NAUSEA/VOMITI NG 650 mg Q6H PRN 10/02/18 UNV Acetaminophen PO .PAIN 1-3 18:30 (Tylenol OR TEMP Tab) 1 tab Q6H PRN 10/02/18 UNV Acetaminophen PO .PAIN 4-6 18:30 / Hydrocodone Bitart ([place] (5/325)) Morphine 2 mg Q4H PRN 10/02/18 UNV Sulfate IV .PAIN 18:30 (morphine) 7-10 Lorazepam 2 mg Q10MIN PRN 10/02/18 UNV (Ativan) IV seizures 18:30 Procedures/MDM This is a 33-year-old female with a known history of seizure disorder. Patient had 2 previous seizures prior to arrival. She stated she was having headache after blunt head trauma and therefore I do feel is necessary to obtain a CT scan of the patient's head which showed no intracerebral hemorrhage mass-effect or midline shift. This was reviewed by the radiologist and indicated the followin. No evidence of acute intracranial hemorrhage, infarcts, seizure foci or acute intracranial pathology. Consider MR as clinically indicated. 2. Status post remote right frontal craniotomy changes 3. Chronic mild bifrontal volume loss I obtained ancillary lab work there was no severe abnormalities. The patient had stated he developed a tonic-clonic seizure but seizure precautions were maintained while in the emergency department. This was not witnessed by myself or nursing staff. She did however receive Ativan and no further seizures were obtained. She however was still feeling slightly confused and postictal and did not return to baseline mental status. Therefore the patient will be admitted for observation for status epilepticus. She did receive a dose of IV Dilaudid in the emergency department. Patient was requesting analgesic medication was given intravenous Dilaudid. She will be admitted to the hospitalist. Departure Diagnosis: Primary Impression: Seizure disorder Additional Impression: Status epilepticus Condition: LYUDMILA Escobar MD Oct 02, 2018 18:42
--- NOTE | 2018-10-02 18:43 | HP ---
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 Patient states that routinely when her headaches get so bad they induces seizures. Patient states that she had approximately 3 episodes today. Patient currently is comfortable however she did get her appropriate pain cocktail for her headaches that her neurologist who usually prescribes. Patient states that she has tried almost every single medication you could think of to her neurologist and currently does take Dilantin, Ativan, Benadryl, Dilaudid oral to stave off her headaches on a normal basis. Otherwise patient denies chest pain, shortness of breath, abdominal pain, nausea, vomiting, leg pain. Objective Physical exam General: Patient is laying in bed and answers questions appropriately Mentation: Patient is alert and oriented 4, Head: Normocephalic atraumatic Eyes: EOMI, pupils reactive to light Neck: Supple, nontender, midline Respiratory: Clear to auscultation bilaterally Cardiovascular: regular rate, no obvious murmurs Gastrointestinal: non-tender to palpation, bowel sounds heard. Neurological: Moves all extremities spontaneously Skin: No new skin lesions Assessment and plan Breakthrough seizures -Patient states that headaches are precipitated by debilitating headaches -Patient follows up with a neurologist on a normal basis, has tried multiple medications for headaches, nothing works -Neurology consulted -CT showing changes of craniotomy which is consistent with her history of traumatic head injury and glioblastoma -MRI pending -EEG pending -Patient taking Dilantin at home will obtain Dilantin level, loaded with Dilantin in the ED. -As needed Ativan. Headache -Follows with neurologist, multiple modalities in the past has not worked -Patient takes 2 mg Ativan, 50 mg Benadryl, 8 mg Dilaudid oral at home to abort these headaches, all prescribed by her neurologist -Temporarily will change medication to IV formulation while in house, patient re ceived IV dosing and had no lethargic effects, patient is likely very tolerant to these medications, however will be very mindful. -Neurology recommendations appreciated History of traumatic brain injury and glioblastoma -Status post craniotomy -Follows up with a neurologist -Outpatient follow-up Of note there is no chemistry available at time of dictation, conference of metabolic panel is pending as well as CK. Disposition -Treat patient's headaches and have neurology evaluate for breakthrough seizure. Result Diagram: 10/02/18 0818 Results 24hrs Laboratory Tests Test 10/02/18 17:26 10/02/18 17:39 Urine Color YELLOW Urine Clarity CLOUDY A Urine pH 6.0 Urine Specific [place] 1.024 Urine Ketones TRACE A Urine Nitrite NEGATIVE Urine Bilirubin NEGATIVE Urine Urobilinogen 1+ H Urine Leukocyte Esterase NEGATIVE Urine Microscopic RBC 0 Urine Microscopic WBC 2 Urine Squamous Epithelial Cells MANY A Urine Mucus MANY A Urine Hemoglobin NEGATIVE Urine Glucose NEGATIVE Urine Total Protein NEGATIVE White Blood Count 11.0 #H Red Blood Count 4.41 Hemoglobin 12.4 Hematocrit 38.3 Mean Corpuscular Volume 86.8 Mean Corpuscular Hemoglobin 28.1 L Mean Corpuscular Hemoglobin Concent 32.4 Red Cell Distribution Width 12.8 Platelet Count 416 H Mean Platelet Volume 9.4 Immature Granulocytes % 0.500 H Neutrophils % 79.0 H Lymphocytes % 16.5 Monocytes % 3.3 Eosinophils % 0.4 Basophils % 0.3 Nucleated Red Blood Cells % 0.0 Immature Granulocytes # 0.050 H Neutrophils # 8.7 H Lymphocytes # 1.8 Monocytes # 0.4 Eosinophils # 0.0 Basophils # 0.0 Nucleated Red Blood Cells # 0.0 Prothrombin Time 14.0 Prothrombin Time Ratio 1.1 INR International Normalized Ratio 1.07 Activated Partial Thromboplast Time 40.5 H POC Beta HCG, Qualitative NEGATIVE HPI/ROS Admit Date/Time Admit Date/Time PMH/Family/Social Past Medical History Medications Current Medications Sodium Chloride 500 ml @ 500 mls/hr Q1H STAT IV Last administered on 10/02/18at 18:15; Admin Dose 500 MLS/HR; Start 10/02/18 at 18:04; Stop 10/02/18 at 19:03 Coded Allergies: prochlorperazine (Verified Allergy, Severe, 10/13/16) metoclopramide HCl (Verified Allergy, Unknown, ANAPHYLACTIC, 10/13/16) topiramate (Verified Allergy, Unknown, ANAPHYLACTIC, 10/13/16) methylprednisolone (Verified Adverse Reaction, Unknown, pt. states tremayne arm numbness, 10/13/16) Family History Significant Family History: no pertinent family hx Social History Smoking Status: Never smoker Exam/Review of Systems Vital Signs Vitals Vital Signs Date Temp Pulse Resp B/P (MAP) Pulse Ox O2 O2 Flow FiO2 Time Delivery Rate 10/02/18 88 18 116/86 98 Room Air 16:42 (96) 10/02/18 98.4 16:04 SAMUEL RUIZ Oct 02, 2018 18:43
[2018-10-02] MEDS: HYDROmorphONE 2 MG/ML SYG IV PRN (18:56)
[2018-10-02] MEDS: DIPHENHYDRAMINE 50 MG INJ IM PRN (18:56)
[2018-10-02] MEDS: LORAZEPAM 2 MG INJ IV PRN (19:08)
[2018-10-02 22:00] VITALS: BP 130/85; PULSE 104; RESP 18
[2018-10-02 22:07] VITALS: PULSE 118
[2018-10-02 23:49] VITALS: BP 125/76; PULSE 111; RESP 16
[2018-10-02] MEDS: SOD CHLORIDE 0.9% 1,000 ML IV SCH (23:53)
[2018-10-02 23:55] VITALS: Ht 152.4 cm; Wt 67.2 kg
[2018-10-03] VITALS (13 sets, daily range): BP systolic 103–168; BP diastolic 66–82; PULSE 60–139; RESP 12–22
[2018-10-03] MEDS: DIPHENHYDRAMINE 50 MG INJ IM PRN ×4 (00:56→23:08)
[2018-10-03] MEDS: LORAZEPAM 2 MG INJ IV PRN ×4 (00:57→23:08)
[2018-10-03] MEDS: HYDROmorphONE 2 MG/ML SYG IV PRN ×4 (00:57→23:08)
[2018-10-03] MEDS: POTASSIUM CHLORIDE (SR) 20 MEQ TAB PO SCH ×2 (09:05→11:56)
[2018-10-03] MEDS ORDERED: LORAZEPAM 2 MG INJ IV ONE (12:00)
[2018-10-03] MEDS ORDERED: DIPHENHYDRAMINE 50 MG INJ IV ONE (12:00)
[2018-10-03] MEDS ORDERED: HYDROmorphONE 2 MG/ML SYG IV ONE (12:00)
[2018-10-03] MEDS: SOD CHLORIDE 0.9% 1,000 ML IV SCH ×2 (12:56→14:36)
--- NOTE | 2018-10-03 13:34 | PN ---
Date/Time of Note Date/Time of Note DATE: 10/03/18 TIME: 13:33 Objective Vitals Vital Signs Date Temp Pulse Resp B/P (MAP) Pulse Ox O2 O2 Flow FiO2 Time Delivery Rate 10/03/18 97.4 60 12 168/82 98 13:27 (110) 10/03/18 Room Air 11:27 Intake and Output 10/02/18 10/02/18 10/03/18 1515:00 23:00 07:00 IntakeIntake Total 300 ml BalanceBalance 300 ml Results Result Diagram: 10/03/18 0541 10/03/18 0541 Medications Medications Current Medications Sodium Chloride 1,000 ml @ 100 mls/hr Q10H IV Last administered on 10/03/18at 12:56; Admin Dose 100 MLS/HR; Start 10/02/18 at 18:22 IV Flush (NS 3 ml) 3 ml PER PROTOCOL IV ; Start 10/02/18 at 18:30 Ondansetron HCl (Zofran Inj) 4 mg Q6H PRN IV NAUSEA/VOMITING; Start 10/02/18 at 18:30 Acetaminophen (Tylenol Tab) 650 mg Q6H PRN PO .PAIN 1-3 OR TEMP; Start 10/02/18 at 18:30 Acetaminophen/ Hydrocodone Bitart ([place] (5/325)) 1 tab Q6H PRN PO .PAIN 4-6; Start 10/02/18 at 18:30 Lorazepam (Ativan) 2 mg Q10MIN PRN IV seizures Last administered on 10/02/18 19:08; Admin Dose 2 MG; Start 10/02/18 at 18:30 Hydromorphone HCl (Dilaudid) 2 mg Q6H PRN IV SEVERE PAIN LEVEL 7-10 Last administered on 10/03/18 07:01; Admin Dose 2 MG; Start 10/02/18 at 19:00 Lorazepam (Ativan) 1 mg Q6H PRN IV anxiety and headache Last administered on 10/03/18 07:01; Admin Dose 1 MG; Start 10/02/18 at 19:00 Diphenhydramine HCl (Benadryl) 50 mg Q6H PRN IM anxiety and headache Last admin istered on 10/03/18 07:00; Admin Dose 50 MG; Start 10/02/18 at 19:00 VTE Prophylaxis Risk score (from Nsg)>0 risk: 3 [place] [facility] [place] Lines/Catheters IV Catheter Type: Helms in Place: No Assessment/Plan Hospital Course Subjective Patient still stating that she has headache, requests increase of frequency of medications. Objective Physical exam General: Patient is laying in bed and answers questions appropriately Mentation: Patient is alert and oriented 4, Head: Normocephalic atraumatic Eyes: EOMI, pupils reactive to light Neck: Supple, nontender, midline Respiratory: Clear to auscultation bilaterally Cardiovascular: regular rate, no obvious murmurs Gastrointestinal: non-tender to palpation, bowel sounds heard. Neurological: Moves all extremities spontaneously Skin: No new skin lesions Assessment and plan Breakthrough seizures -Patient states that headaches are precipitated by debilitating headaches -Patient follows up with a neurologist on a normal basis, has tried multiple medications for headaches, nothing works -Neurology consulted -CT showing changes of craniotomy which is consistent with her history of traumatic head injury and glioblastoma -MRI noted -EEG pending -Patient taking Dilantin at home will obtain Dilantin level, loaded with Dilantin in the ED. -As needed Ativan. Headache -Follows with neurologist, multiple modalities in the past has not worked -Patient takes 2 mg Ativan, 50 mg Benadryl, 8 mg Dilaudid oral at home to abort these headaches, all prescribed by her neurologist -Temporarily will change medication to IV formulation while in house, patient received IV dosing and had no lethargic effects, patient is likely very tolerant to these medications, however will be very mindful. -Neurology recommendations appreciated History of traumatic brain injury and glioblastoma -Status post craniotomy -Follows up with a neurologist -Outpatient follow-up Of note there is no chemistry available at time of dictation, conference of metabolic panel is pending as well as CK. Disposition -Treat patient's headaches and have neurology evaluate for breakthrough seizure. -Patient requesting excessive doses of IV medication for headache, will defer to neurology for continued dosing if patient is truly having headache SAMUEL RUIZ Oct 03, 2018 13:34
--- NOTE | 2018-10-03 14:38 | RADRPT ---
Echocardiogram Report Patient Name: PHILIPPE BANEGASPatient ID: [id number] : 1985 (33y 7m)Study Date: 10/03/2018 11:05:50 AM Gender: FAccession #: [id number] [place]: [facility] [place] Location: Ref.Physician: SAMUEL RUIZ Height(Cm): 152 BSA: 1.68Weight(Kg): 67.1 Quality: Technically Difficult StudyAccount #: Procedures: Echocardiographic Report: Transthoracic echocardiogram with complete 2D, M-Mode, and doppler examination, TDS exam patient complaining of pain throughout exam. Indications: Tachycardia. Measurements: 2D/M Mode Doppler Measurement Value Normal Range Measurement Value Normal Range LVIDd 2D 4.0 [ 3.8 - 5.2 ] cm AV Peak Mack 1.0 [ 100.0 - 170.0 ] cm/sec LVIDs 2D 2.8 [ 2.2 - 3.5 ] cm AV Peak PG 4.0 [ 2.0 - 9.0 ] mmHg LVPWd 2D 0.7 [ 0.6 - 0.9 ] cm LVOT Peak Mack 0.7 [ 70.0 - 110.0 ] cm/sec IVSd 2D 0.7 [ 0.6 - 0.9 ] cm LVOT Peak PG 2.0 [ 2.0 - 6.0 ] mmHg AoR Diam 2D 2.9 [ 2.3 - 3.1 ] cm Med E` Mack 0.1 cm/sec EDV 2D 67.9 [ 46.0 - 106.0 ] ml PV Peak Mack 0.7 [ 40.0 - 80.0 ] cm/sec ESV 2D 28.5 [ 14.0 - 42.0 ] ml PV Peak PG 2.0 mmHg EF 2D 58.0 [ 54.0 - 74.0 ] percent LA Dimen 2D 3.0 [ 2.7 - 3.8 ] cm Findings: Left Ventricle: Normal left ventricular systolic function. Normal left ventricular cavity size. Normal left ventricular wall thickness. Ejection fraction is visually estimated at 55 %. Tissue Doppler/Mitral Doppler indices are indeterminate in this study due to the presence of tachycardia throughout exam. Right Ventricle: Normal right ventricular size. Normal right ventricular systolic function. Left Atrium: The left atrium is normal in size. Right Atrium: The right atrium is normal in size. Atrial Septum: Normal atrial septum. Mitral Valve: Normal appearance and function of the mitral valve with trace physiologic regurgitation. Aortic Valve: No significant aortic stenosis or insufficiency. Normal trileaflet aortic valve structure. Tricuspid Valve: Normal appearance and function of the tricuspid valve with trace physiologic regurgitation. Pulmonic Valve: Normal pulmonic valve appearance. No evidence of pulmonic regurgitation. Pericardium: Normal pericardium with no significant pericardial effusion. Aorta: Normal aortic root. IVC: Normal size and normal respiratory collapse consistent with normal right atrial pressure. Pulmonary Artery: Normal pulmonary artery size. Conclusions: Normal appearance and function of the mitral valve with trace physiologic regurgitation. No significant aortic stenosis or insufficiency. Normal trileaflet aortic valve structure. Normal appearance and function of the tricuspid valve with trace physiologic regurgitation. Normal left ventricular systolic function. Normal left ventricular cavity size. Normal left ventricular wall thickness. Ejection fraction is visually estimated at 55 %. Tissue Doppler/Mitral Doppler indices are indeterminate in this study due to the presence of tachycardia throughout exam. Electronically Signed By: Chris Morales 2018-10-03 14:37:04 PST
--- NOTE | 2018-10-03 15:53 | CONS ---
Assessment/Plan Assessment/Plan Hospital Course 33 F c/ reported Hx of epilepsy and other comorbidities, presents for evaluation following reported breakthrough seizures...for which neurology is consulted. Her Dilantin level was subtherapeutic on presentation... the likely underlying precipitant.. CT H is notable for sequelae of prior R frontal craniotomy... MRI brain is without obvious acute intracranial pathology. now therapeutic s/p Dilantin load.. 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 Patient states that routinely when her headaches get so bad they induces seizures. Patient states that she had approximately 3 episodes today. Patient currently is comfortable however she did get her appropriate pain cocktail for her headaches that her neurologist who usually prescribes. Patient states that she has tried almost every single medication you could think of to her neurologist and currently does take Dilantin, Ativan, Benadryl, Dilaudid oral to stave off her headaches on a normal basis. Otherwise patient denies chest pain, shortness of breath, abdominal pain, nausea, vomiting, leg pain. 12 PT ROS ow neg Exam/Review of Systems Exam Vitals Vital Signs Date Temp Pulse Resp B/P (MAP) Pulse Ox O2 O2 Flow FiO2 Time Delivery Rate 10/03/18 129 12:00 10/03/18 97.6 22 107/80 96 Room Air 11:27 (89) Intake and Output 10/02/18 10/02/18 10/03/18 1515:00 23:00 07:00 IntakeIntake Total 300 ml BalanceBalance 300 ml Exam Pt currently unavailable. Results Result Diagram: 10/03/18 0541 10/03/18 0541 Results 24hrs Laboratory Tests Test 10/02/18 17:26 10/02/18 17:39 10/03/18 05:41 Urine Color YELLOW Urine Clarity CLOUDY A Urine pH 6.0 Urine Specific [place] 1.024 Urine Ketones TRACE A Urine Nitrite NEGATIVE Urine Bilirubin NEGATIVE Urine Urobilinogen 1+ H Urine Leukocyte Esterase NEGATIVE Urine Microscopic RBC 0 Urine Microscopic WBC 2 Urine Squamous Epithelial Cells MANY A Urine Mucus MANY A Urine Hemoglobin NEGATIVE Urine Glucose NEGATIVE Urine Total Protein NEGATIVE Urine Opiates Screen Positive Urine Barbiturates Negative Urine Amphetamines Screen Negative Urine Benzodiazepines Screen Negative Urine Cocaine Screen Negative Urine Cannabinoids Negative White Blood Count 11.0 #H 13.2 H Red Blood Count 4.41 3.91 L Hemoglobin 12.4 11.2 L Hematocrit 38.3 33.3 L Mean Corpuscular Volume 86.8 85.2 Mean Corpuscular Hemoglobin 28.1 L 28.6 L Mean Corpuscular Hemoglobin Concent 32.4 33.6 Red Cell Distribution Width 12.8 12.7 Platelet Count 416 H 386 Mean Platelet Volume 9.4 9.4 Immature Granulocytes % 0.500 H 0.500 H Neutrophils % 79.0 H 77.3 H Lymphocytes % 16.5 16.5 Monocytes % 3.3 5.0 Eosinophils % 0.4 0.5 Basophils % 0.3 0.2 Nucleated Red Blood Cells % 0.0 0.0 Immature Granulocytes # 0.050 H 0.070 H Neutrophils # 8.7 H 10.2 H Lymphocytes # 1.8 2.2 Monocytes # 0.4 0.7 Eosinophils # 0.0 0.1 Basophils # 0.0 0.0 Nucleated Red Blood Cells # 0.0 0.0 Prothrombin Time 14.0 Prothrombin Time Ratio 1.1 INR International Normalized Ratio 1.07 Activated Partial Thromboplast Time 40.5 H Sodium Level 142 138 Potassium Level 3.4 L 3.2 L Chloride Level 112 H 105 Carbon Dioxide Level 20 L 21 Anion Gap 10 12 Blood Urea Nitrogen 8 4 L Creatinine 0.44 0.47 Est Glomerular Filtrat Rate mL/min > 60 > 60 Glucose Level 94 85 Calcium Level 8.6 8.6 Total Bilirubin 0.1 L 0.3 Direct Bilirubin 0.00 0.00 Indirect Bilirubin 0.1 0.3 Aspartate Amino Transf (AST/SGOT) 20 18 Alanine Aminotransferase (ALT/SGPT) 26 26 Alkaline Phosphatase 94 89 Creatine Kinase 73 Total Protein 7.5 7.3 Albumin 3.9 3.8 Globulin 3.60 H 3.50 H Albumin/Globulin Ratio 1.08 1.08 POC Beta HCG, Qualitative NEGATIVE Phenytoin (Dilantin) Level < 3.0 L 11.2 Magnesium Level 1.7 Medications Medication Current Medications IV Flush (NS 3 ml) 3 ml PER PROTOCOL IV ; Start 10/02/18 at 18:30 Ondansetron HCl (Zofran Inj) 4 mg Q6H PRN IV NAUSEA/VOMITING; Start 10/02/18 at 18:30 Acetaminophen (Tylenol Tab) 650 mg Q6H PRN PO .PAIN 1-3 OR TEMP; Start 10/02/18 at 18:30 Acetaminophen/ Hydrocodone Bitart ([place] (5/325)) 1 tab Q6H PRN PO .PAIN 4-6; Start 10/02/18 at 18:30 Lorazepam (Ativan) 2 mg Q10MIN PRN IV seizures Last administered on 10/02/18at 19:08; Admin Dose 2 MG; Start 10/02/18 at 18:30 Hydromorphone HCl (Dilaudid) 2 mg Q6H PRN IV SEVERE PAIN LEVEL 7-10 Last administered on 10/03/18at 07:01; Admin Dose 2 MG; Start 10/02/18 at 19:00 Lorazepam (Ativan) 1 mg Q6H PRN IV anxiety and headache Last administered on 10/03/18at 07:01; Admin Dose 1 MG; Start 10/02/18 at 19:00 Diphenhydramine HCl (Benadryl) 50 mg Q6H PRN IM anxiety and headache Last administered on 10/03/18at 07:00; Admin Dose 50 MG; Start 10/02/18 at 19:00 Sodium Chloride 1,000 ml @ 75 mls/hr [id number] IV Last administered on 10/03/18at 14:36; Admin Dose 75 MLS/HR; Start 10/03/18 at 14:00 Past Medical History reviewed Home Meds Reported Medications Hydromorphone Hcl* (Dilaudid*) 4 Mg Tablet, 4 MG PO BID PRN for PAIN, TAB 10/02/18 Lorazepam* (Ativan*) 2 Mg Tablet, 2 MG PO DAILY PRN for ANXIETY, #30 TAB 10/02/18 Phenytoin* Sodium Extended (Dilantin*) 300 Mg Capsule, 300 MG PO BID, CAP 10/02/18 Discontinued Reported Medications Hydrocodone/Acetaminophen ([place] 10-325 Tablet) 1 Each Tablet, 1 TAB PO Q4 PRN for PAIN LEVEL 6-10, TAB 12/20/16 Diphenhydramine Hcl* (Benadryl*) 50 Mg Cap, 50 MG PO Q6 PRN for ITCHING, CAP 10/13/16 Medications Current Medications IV Flush (NS 3 ml) 3 ml PER PROTOCOL IV ; Start 10/02/18 at 18:30 Ondansetron HCl (Zofran Inj) 4 mg Q6H PRN IV NAUSEA/VOMITING; Start 10/02/18 at 18:30 Acetaminophen (Tylenol Tab) 650 mg Q6H PRN PO .PAIN 1-3 OR TEMP; Start 10/02/18 at 18:30 Acetaminophen/ Hydrocodone Bitart ([place] (5/325)) 1 tab Q6H PRN PO .PAIN 4-6; Start 10/02/18 at 18:30 Lorazepam (Ativan) 2 mg Q10MIN PRN IV seizures Last administered on 10/02/18at 19:08; Admin Dose 2 MG; Start 10/02/18 at 18:30 Hydromorphone HCl (Dilaudid) 2 mg Q6H PRN IV SEVERE PAIN LEVEL 7-10 Last administered on 10/03/18 07:01; Admin Dose 2 MG; Start 10/02/18 at 19:00 Lorazepam (Ativan) 1 mg Q6H PRN IV anxiety and headache Last administered on 10/03/18 07:01; Admin Dose 1 MG; Start 10/02/18 at 19:00 Diphenhydramine HCl (Benadryl) 50 mg Q6H PRN IM anxiety and headache Last administered on 10/03/18 07:00; Admin Dose 50 MG; Start 10/02/18 at 19:00 Sodium Chloride 1,000 ml @ 75 mls/hr [id number] IV Last administered on 10/03/18 14:36; Admin Dose 75 MLS/HR; Start 10/03/18 at 14:00 Allergies: Coded Allergies: prochlorperazine (Verified Allergy, Severe, 10/13/16) metoclopramide HCl (Verified Allergy, Unknown, ANAPHYLACTIC, 10/13/16) topiramate (Verified Allergy, Unknown, ANAPHYLACTIC, 10/13/16) methylprednisolone (Verified Adverse Reaction, Unknown, pt. states tremayne arm numbness, 10/13/16) Past Surgical History reviewed Social History Smoking Status: Never smoker TI BANSAL Oct 03, 2018 15:52
[2018-10-04] VITALS (12 sets, daily range): BP systolic 105–120; BP diastolic 65–84; PULSE 66–127; RESP 16–18
[2018-10-04] MEDS: SOD CHLORIDE 0.9% 1,000 ML IV SCH ×2 (05:02→16:40)
[2018-10-04] MEDS: HYDROmorphONE 2 MG/ML SYG IV PRN ×4 (05:09→23:41)
[2018-10-04] MEDS: DIPHENHYDRAMINE 50 MG INJ IM PRN (05:09)
[2018-10-04] MEDS: LORAZEPAM 2 MG INJ IV PRN ×4 (05:09→23:46)
[2018-10-04] MEDS ORDERED: LIDOCAINE 1% (MPF) 5 ML VIAL SC ONE (11:00)
[2018-10-04] MEDS: DIPHENHYDRAMINE 50 MG INJ IV PRN ×3 (12:35→23:46)
--- NOTE | 2018-10-04 16:18 | CONS ---
Assessment/Plan Assessment/Plan Hospital Course 33 F c/ reported Hx of epilepsy and other comorbidities, presents for evaluation following reported breakthrough seizures...for which neurology is consulted. Her Dilantin level was subtherapeutic on presentation... the likely underlying precipitant.. CT H is notable for sequelae of prior R frontal craniotomy... MRI brain is without obvious acute intracranial pathology. CXR was normal P: Continue maintenance Dilantin per ops Ativan iv prn prolonged seizure of cluster Other management and supportive care per primary Neurologically cleared for discharge w/ outpatient neuro followup Consultation Date/Type/Reason Admit Date/Time Oct 02, 2018 at 21:30 Type of Consult Neurology Reason for Consultation seizure Requesting Provider: SAMUEL RUIZ Date/Time of Note DATE: 10/04/18 TIME: 16:18 24 HR Interval Summary Free Text/Dictation 12 PT ROS ow neg Exam Vital Signs Vitals Vital Signs Date Temp Pulse Resp B/P (MAP) Pulse Ox O2 O2 Flow FiO2 Time Delivery Rate 10/04/18 106 16:18 10/04/18 99.0 16 109/76 97 15:02 (87) 10/04/18 Room Air 04:19 Intake and Output 10/03/18 10/03/18 10/04/18 1515:00 23:00 07:00 IntakeIntake Total 1150 ml 950 ml BalanceBalance 1150 ml 950 ml Exam PE: Gen Appearance: No Apparent Distress HEENT: Normocephalic Abdomen: Soft Extremities: Dry NE: The patient was alert and oriented. Language was normal. Fund of knowledge was normal. Pupils were equal and reactive to light. There was no afferent pupillary defect. Visual bridges were normal. Funduscopic examination showed sharp disc margins and spontaneous venous pulsations. Extra-ocular movements were full. Ptosis was absent. There was no nystagmus. Facial sensation was normal. Face was symmetric with normal strength. Hearing was intact. Palate movements were normal. Neck strength was normal. There was normal tongue bulk and speed of movement. Tone was normal. Muscle bulk was normal. I did not see fasciculations. Arms and legs were strong. Vibration sensation was normal. Temperature and pinprick sensation was normal. Rapid alternating movements were normal. There was no dysmetria. There was no intention tremor. Gait was deferred due to bedrest. Arm and leg reflexes were symmetric. Carlos's sign was absent. Plantar responses were flexor. HELGA MORALES NP Oct 04, 2018 16:18 TI BANSAL Oct 04, 2018 16:50
[2018-10-04] MEDS ORDERED: PHENYTOIN 500 MG in SOD CHLORIDE 0.9% 100 ML IV ONE (17:00)
--- NOTE | 2018-10-04 17:25 | PN ---
Date/Time of Note Date/Time of Note DATE: 10/04/18 TIME: 17:21 Assessment/Plan VTE Prophylaxis Risk score (from Ns)>0 risk: 0 SCD applied (from Ns): No SCD contraindicated: low risk/ambulating Pharmacological prophylaxis: NA/contraindicated Pharm contraindication: low risk/ambulating Lines/Catheters [facility] Mid Line Urinary Cath still in place: No Assessment/Plan Assessment/Plan 1. Breakthrough seizures - patient continues with headaches. Neurology on board and appreciate recommendations - Dilantin levels noted and will touch base with Neuro regarding medication adjustments - Patient follows up with a neurologist on a normal basis, has tried multiple medications for headaches, nothing works - CT showing changes of craniotomy which is consistent with her history of traumatic head injury and glioblastoma - MRI noted 2. Chronic Headache - Follows with neurologist, multiple modalities in the past has not worked - Patient takes 2 mg Ativan, 50 mg Benadryl, 8 mg Dilaudid oral at home to abort these headaches, all prescribed by her neurologist - Neurology recommendations appreciated 3. History of traumatic brain injury and glioblastoma - Status post craniotomy - Follows up with a neurologist - Outpatient follow-up 4. Disposition - Will touch base with Neuro regarding Dilantin levels - Once stable, will d/c home with outpatient Neurology f/up Result Diagram: 10/04/18 0541 10/04/18 0541 Results 24hrs Laboratory Tests Test 10/04/18 05:41 10/04/18 16:33 White Blood Count 9.8 # Red Blood Count 3.97 L Hemoglobin 11.3 L Hematocrit 34.6 L Mean Corpuscular Volume 87.2 Mean Corpuscular Hemoglobin 28.5 L Mean Corpuscular Hemoglobin Concent 32.7 Red Cell Distribution Width 13.2 Platelet Count 370 Mean Platelet Volume 9.7 Immature Granulocytes % 0.400 Neutrophils % 73.5 Lymphocytes % 17.2 Monocytes % 7.6 Eosinophils % 0.9 Basophils % 0.4 Nucleated Red Blood Cells % 0.0 Immature Granulocytes # 0.040 H Neutrophils # 7.2 Lymphocytes # 1.7 Monocytes # 0.8 Eosinophils # 0.1 Basophils # 0.0 Nucleated Red Blood Cells # 0.0 Sodium Level 139 Potassium Level 3.9 Chloride Level 109 Carbon Dioxide Level 20 L Anion Gap 10 Blood Urea Nitrogen 7 Creatinine 0.44 Est Glomerular Filtrat Rate mL/min > 60 Glucose Level 84 Calcium Level 8.7 Phosphorus Level 3.3 Magnesium Level 2.0 Phenytoin (Dilantin) Level 5.6 L 4.1 L Subjective 24 Hr Interval Summary Free Text/Dictation Patient still complaining of headache and fear that she may have another seizure. Continues to request increased frequency of Dilantin and Benadryl which is concerning for drug seeking behavior. Exam/Review of Systems Exam Vitals Vital Signs Date Temp Pulse Resp B/P (MAP) Pulse Ox O2 O2 Flow FiO2 Time Delivery Rate 10/04/18 106 16:18 10/04/18 99.0 16 109/76 97 15:02 (87) 10/04/18 Room Air 04:19 Intake and Output 10/03/18 10/03/18 10/04/18 1515:00 23:00 07:00 IntakeIntake Total 1150 ml 950 ml BalanceBalance 1150 ml 950 ml Exam General: Patient is laying in bed and answers questions appropriately Neck: Supple, nontender, midline Respiratory: Clear to auscultation bilaterally. no wheezing or rhonchi Cardiovascular: regular rate and rhythm, no obvious murmurs Gastrointestinal: non-tender to palpation, bowel sounds heard. Neurological: Moves all extremities spontaneously Skin: No new skin lesions Results Results 24hrs Laboratory Tests Test 10/04/18 05:41 10/04/18 16:33 White Blood Count 9.8 # Red Blood Count 3.97 L Hemoglobin 11.3 L Hematocrit 34.6 L Mean Corpuscular Volume 87.2 Mean Corpuscular Hemoglobin 28.5 L Mean Corpuscular Hemoglobin Concent 32.7 Red Cell Distribution Width 13.2 Platelet Count 370 Mean Platelet Volume 9.7 Immature Granulocytes % 0.400 Neutrophils % 73.5 Lymphocytes % 17.2 Monocytes % 7.6 Eosinophils % 0.9 Basophils % 0.4 Nucleated Red Blood Cells % 0.0 Immature Granulocytes # 0.040 H Neutrophils # 7.2 Lymphocytes # 1.7 Monocytes # 0.8 Eosinophils # 0.1 Basophils # 0.0 Nucleated Red Blood Cells # 0.0 Sodium Level 139 Potassium Level 3.9 Chloride Level 109 Carbon Dioxide Level 20 L Anion Gap 10 Blood Urea Nitrogen 7 Creatinine 0.44 Est Glomerular Filtrat Rate mL/min > 60 Glucose Level 84 Calcium Level 8.7 Phosphorus Level 3.3 Magnesium Level 2.0 Phenytoin (Dilantin) Level 5.6 L 4.1 L Medications Medication Current Medications IV Flush (NS 3 ml) 3 ml PER PROTOCOL IV ; Start 10/02/18 at 18:30 Ondansetron HCl (Zofran Inj) 4 mg Q6H PRN IV NAUSEA/VOMITING; Start 10/02/18 at 18:30 Acetaminophen (Tylenol Tab) 650 mg Q6H PRN PO .PAIN 1-3 OR TEMP; Start 10/02/18 at 18:30 Lorazepam (Ativan) 2 mg Q10MIN PRN IV seizures Last administered on 10/04/18 05:09; Admin Dose 2 MG; Start 10/02/18 at 18:30 Hydromorphone HCl (Dilaudid) 2 mg Q6H PRN IV SEVERE PAIN LEVEL 7-10 Last a dministered on 10/04/18 12:36; Admin Dose 2 MG; Start 10/02/18 at 19:00 Lorazepam (Ativan) 1 mg Q6H PRN IV anxiety and headache Last administered on 10/04/18 12:35; Admin Dose 1 MG; Start 10/02/18 at 19:00 Sodium Chloride 1,000 ml @ 75 mls/hr [id number] IV Last administered on 10/04/18 05:02; Admin Dose 75 MLS/HR; Start 10/03/18 at 14:00 Diphenhydramine HCl (Benadryl) 50 mg Q6H PRN IV ITCHING Last administered on 10/04/18 12:35; Admin Dose 50 MG; Start 10/04/18 at 05:30 Phenytoin (Dilantin) 300 mg BID PO ; Start 10/04/18 at 21:00 Phenytoin 500 mg/ Sodium Chloride 110 ml @ 220 mls/hr ONCE ONCE IV Last administered on 10/04/18 17:20; Admin Dose 220 MLS/HR; Start 10/04/18 at 17:00; Stop 10/04/18 at 17:29 Acetaminophen/ Hydrocodone Bitart ([place] (5/325)) 1 tab Q4 PRN PO .PAIN 4-6; Start 10/04/18 at 17:30; Status UNGERARD BRAGA MD Oct 04, 2018 17:25
[2018-10-04] MEDS ORDERED: HYDROCODONE/APAP (5/325) TAB PO PRN (17:30)
[2018-10-04] MEDS: PHENYTOIN 100 MG CAP PO SCH (23:40)
[2018-10-05] VITALS (10 sets, daily range): BP systolic 97–112; BP diastolic 69–81; PULSE 70–129; RESP 16–18
[2018-10-05] MEDS: LORAZEPAM 2 MG INJ IV PRN ×3 (05:40→16:08)
[2018-10-05] MEDS: DIPHENHYDRAMINE 50 MG INJ IV PRN ×3 (05:40→16:08)
[2018-10-05] MEDS: HYDROmorphONE 2 MG/ML SYG IV PRN ×3 (05:40→16:08)
[2018-10-05] MEDS: SOD CHLORIDE 0.9% 1,000 ML IV SCH (05:41)
[2018-10-05] MEDS: PHENYTOIN 100 MG CAP PO SCH (08:51)
--- NOTE | 2018-10-05 10:30 | PN ---
Date/Time of Note Date/Time of Note DATE: 10/05/18 TIME: 10:22 Assessment/Plan VTE Prophylaxis Risk score (from Nsg)>0 risk: 0 SCD applied (from Ns): No SCD contraindicated: low risk/ambulating Pharmacological prophylaxis: NA/contraindicated Pharm contraindication: low risk/ambulating Lines/Catheters IV Catheter Type (from Nrs[facility]): Mid Line Urinary Cath still in place: No Assessment/Plan Assessment/Plan 1. Breakthrough seizures - Patient states she had a seizure last night but then states she just has a bad headache that is relieved with pain medications - patient continues with headaches. Neurology on board and appreciate recommendations. Okay for discharge home with outpatient follow up with Neurologist - Dilantin levels within normal limits - Patient follows up with a neurologist on a normal basis, has tried multiple medications for headaches, nothing works - CT showing changes of craniotomy which is consistent with her history of traumatic head injury and glioblastoma - MRI noted 2. Chronic Headache - Follows with neurologist, multiple modalities in the past has not worked - Patient takes 2 mg Ativan, 50 mg Benadryl, 2 mg Dilaudid q8hr oral at home to abort these headaches, all prescribed by her neurologist - Neurology recommendations appreciated 3. History of traumatic brain injury and glioblastoma - Status post craniotomy - Follows up with a neurologist - Outpatient follow-up 4. Disposition - Cleared for discharge home by Neurology with outpatient follow up - Patient feels stable for discharge at this time as well Result Diagram: 10/04/18 0541 10/04/18 0541 Results 24hrs Laboratory Tests Test 10/04/18 16:33 10/04/18 20:11 10/05/18 05:36 Phenytoin (Dilantin) Level 4.1 L 10.2 12.2 Subjective 24 Hr Interval Summary Free Text/Dictation Patient states shes still with headaches which improve after getting her pain medication. She states she feels ready to go home and plans to follow up with outpatient Neurologist. No acute overnight events. Exam/Review of Systems Exam Vitals Vital Signs Date Temp Pulse Resp B/P (MAP) Pulse Ox O2 O2 Flow FiO2 Time Delivery Rate 10/05/18 80 08:42 10/05/18 98.0 16 106/73 97 07:12 (84) 10/04/18 Room Air 04:19 Intake and Output 10/04/18 10/04/18 10/05/18 1515:00 23:00 07:00 IntakeIntake Total 410 ml 1800 ml BalanceBalance 410 ml 1800 ml Exam General: Patient is laying in bed and answers questions appropriately Neck: Supple, nontender, midline Respiratory: Clear to auscultation bilaterally. no wheezing or rhonchi Cardiovascular: regular rate and rhythm, no obvious murmurs Gastrointestinal: soft, non-tender to palpation, bowel sounds heard. Neurological: Moves all extremities spontaneously Skin: No new skin lesions Results Results 24hrs Laboratory Tests Test 10/04/18 16:33 10/04/18 20:11 10/05/18 05:36 Phenytoin (Dilantin) Level 4.1 L 10.2 12.2 Medications Medication Current Medications IV Flush (NS 3 ml) 3 ml PER PROTOCOL IV ; Start 10/02/18 at 18:30 Ondansetron HCl (Zofran Inj) 4 mg Q6H PRN IV NAUSEA/VOMITING; Start 10/02/18 at 18:30 Acetaminophen (Tylenol Tab) 650 mg Q6H PRN PO .PAIN 1-3 OR TEMP; Start 10/02/18 at 18:30 Lorazepam (Ativan) 2 mg Q10MIN PRN IV seizures Last administered on 10/04/18 05:09; Admin Dose 2 MG; Start 10/02/18 at 18:30 Hydromorphone HCl (Dilaudid) 2 mg Q6H PRN IV SEVERE PAIN LEVEL 7-10 Last administered on 10/05/18at 05:40; Admin Dose 2 MG; Start 10/02/18 at 19:00 Lorazepam (Ativan) 1 mg Q6H PRN IV anxiety and headache Last administered on 10/05/18 05:40; Admin Dose 1 MG; Start 10/02/18 at 19:00 Diphenhydramine HCl (Benadryl) 50 mg Q6H PRN IV ITCHING Last administered on 10/05/18 05:40; Admin Dose 50 MG; Start 10/04/18 at 05:30 Phenytoin (Dilantin) 300 mg BID PO Last administered on 10/05/18 08:51; Admin Dose 300 MG; Start 10/04/18 at 21:00 Acetaminophen/ Hydrocodone Bitart ([place] (5/325)) 1 tab Q4 PRN PO .PAIN 4-6 Last administered on 10/05/18at 08:00; Admin Dose 1 TAB; Start 10/04/18 at 17:30 GERARD MORALES MD Oct 05, 2018 10:30
--- NOTE | 2018-10-05 10:32 | PDOCDIS ---
Discharge Instructions DIAGNOSIS Discharge Diagnosis 1. Breakthrough seizures 2. Chronic Headache 3. History of traumatic brain injury and glioblastoma CONDITION [id number] Patient Condition: [id number] Stable HOME CARE INSTRUCTIONS: [id number] Diet Instructions: [id number] Regular ACTIVITY: [id number] Activity Restrictions: [id number] No Restrictions FOLLOW UP/APPOINTMENTS Follow-up Plan 1. Follow up with your primary care physician in 1 week 2. Follow up with your Neurologist as soon as possible especially if you need any medication refills 3. Take all medications as prescribed 4. If symptoms worsen, please return to your nearest emergency department GERARD MORALES MD Oct 05, 2018 10:32
--- NOTE | 2018-10-05 14:57 | CONS ---
Assessment/Plan Assessment/Plan Hospital Course 33 F c/ reported Hx of epilepsy and other comorbidities, presents for evaluation following reported breakthrough seizures...for which neurology is consulted. Her Dilantin level was subtherapeutic on presentation... the likely underlying precipitant.. CT H is notable for sequelae of prior R frontal craniotomy... MRI brain is without obvious acute intracranial pathology. CXR was normal P: Continue maintenance Dilantin per ops Ativan iv prn prolonged seizure of cluster Other management and supportive care per primary Neurologically cleared for discharge w/ outpatient neuro followup Consultation Date/Type/Reason Admit Date/Time Oct 02, 2018 at 21:30 Type of Consult Neurology Reason for Consultation seizure Requesting Provider: SAMUEL RUIZ Date/Time of Note DATE: 10/05/18 TIME: 14:57 24 HR Interval Summary Free Text/Dictation Continues acute care Exam Vital Signs Vitals Vital Signs Date Temp Pulse Resp B/P (MAP) Pulse Ox O2 O2 Flow FiO2 Time Delivery Rate 10/05/18 86 12:25 10/05/18 97.4 16 103/69 97 12:02 (80) 10/04/18 Room Air 04:19 Intake and Output 10/04/18 10/04/18 10/05/18 1515:00 23:00 07:00 IntakeIntake Total 410 ml 1800 ml BalanceBalance 410 ml 1800 ml Exam PE: Gen Appearance: No Apparent Distress HEENT: Normocephalic Abdomen: Soft Extremities: Dry NE: The patient was alert and oriented. Language was normal. Fund of knowledge was normal. Pupils were equal and reactive to light. There was no afferent pupillary defect. Visual bridges were normal. Funduscopic examination showed sharp disc margins and spontaneous venous pulsations. Extra-ocular movements were full. Ptosis was absent. There was no nystagmus. Facial sensation was normal. Face was symmetric with normal strength. Hearing was intact. Palate movements were normal. Neck strength was normal. There was normal tongue bulk and speed of movement. Tone was normal. Muscle bulk was normal. I did not see fasciculations. Arms and legs were strong. Vibration sensation was normal. Temperature and pinprick sensation was normal. Rapid alternating movements were normal. There was no dysmetria. There was no intention tremor. Gait was deferred due to bedrest. Arm and leg reflexes were symmetric. Carlos's sign was absent. Plantar responses were flexor. HELGA MORALES NP Oct 05, 2018 14:57 TI BANSAL Oct 05, 2018 16:07
--- NOTE | 2018-10-05 17:39 | DS ---
Date/Time of Note Date/Time of Note DATE: 10/05/18 TIME: 17:34 Discharge Summary Admission/Discharge Info Admit Date/Time Oct 02, 2018 at 21:30 Discharge Date/Time 10/05/18 Discharge Diagnosis 1. Breakthrough seizures 2. Chronic Headache 3. History of traumatic brain injury and glioblastoma Patient Condition: Stable Consults Neurology- Dr. Riley Procedures PROCEDURE: XR Chest. CLINICAL INDICATION: Cough TECHNIQUE: Single portable view of the chest was obtained. COMPARISON: 06/21/2018 FINDINGS: Cardiac/vascular structures: Normal cardiomediastinal silhouette. Pulmonary: Lungs are clear. No pleural effusion. No evidence of pneumothorax. Osseous structures: Normal Soft tissues: Normal IMPRESSION: No acute cardiopulmonary disease. RPTAT:AAJJ Physician Yonny Date Time Electronically viewed and signed by Marta Hagen Physician on 10/03/2018 18:25 PROCEDURE: CT Brain without contrast. CLINICAL INDICATION: Seizure TECHNIQUE: A CT of the brain was performed on a [employer] CT scanner utilizing axial imaging from the skull base through the vertex without IV contrast. Multiplanar reformatted images were made. Images were reviewed on a PACS workstation. The CTDIvol is 39.60 mGy and the DLP is 634.23 mGycm. DICOM images are available. Motion artifact degrades the optimal quality of the study. One of the following 3 dose reduction techniques were used during this CT examination: 1) Automated exposure control 2) Adjustment of the mA +/- kV according to patient size or 3) Use of iterative reconstruction technique COMPARISON: 06/22/2018 CT brain, 06/12/2018 CT brain 04/25/[address] brain FINDINGS: There is no intracranial hemorrhage, mass effect, or midline shift. No extra- axial fluid collection is seen. The ventricles and sulci are normal in size and configuration. Mild by frontal cortical volume loss is noted. The density of the brain is normal, and the montano white matter differentiation appears well- preserved. The visualized scalp and calvarium are remarkable for remote right frontal craniotomy changes. The bilateral orbits are normal. The bilateral paranasal sinuses, mastoid air cells and middle ear cavities are clear. IMPRESSION: 1. No evidence of acute intracranial hemorrhage, infarcts, seizure foci or acute intracranial pathology. Consider MR as clinically indicated. 2. Status post remote right frontal craniotomy changes 3. Chronic mild bifrontal volume loss RPTAT: [facility] .Nazia Winslow MD, Date Time Electronically viewed and signed by .Nazia Winslow MD, on 10/02/2018 1 7:52 PROCEDURE: MR Brain without contrast. CLINICAL INDICATION: Seizure. TECHNIQUE: Multiplanar, multisequence MRI of the brain was performed without IV contrast. The following sequences were obtained: Axial DWI, axial T2, and coronal GRE. COMPARISON: None FINDINGS: The examination is diagnostic, however the patient was unable to tolerate the entirety of the examination. Brain: No diffusion weighted abnormalities are seen to suggest the presence of acute ischemia or recent infarct. There is no evidence of intracranial hemorrhage, mass effect, or midline shift. No extra-axial fluid collections are seen. The ventricles and sulci are normal in size and configuration. Normal flow voids are visible in the proximal intracranial arteries. Soft tissues and marrow: Unremarkable. Face and orbits: Visualized portions are unremarkable. Paranasal sinuses: Unremarkable. IMPRESSION: No acute intracranial abnormality on the MRI sequences obtained. RPTAT: HEUY Physician martha Date Time Electronically viewed and signed by Physician martha on 10/02/2018 20:34 Hx of Present Illness Patient is a female with past medical history significant for epilepsy and severe headache secondary to traumatic head injury as a child as well as glioblastoma who presents to [facility] for breakthrough seizure. Patient states that routinely when her headaches get so bad they induces seizures. Patient states that she had approximately 3 episodes today. Patient currently is comfortable however she did get her appropriate pain cocktail for her headaches that her neurologist who usually prescribes. Patient states that she has tried almost every single medication you could think of to her neurologist and currently does take Dilantin, Ativan, Benadryl, Dilaudid oral to stave off her headaches on a normal basis. Otherwise patient denies chest pain, shortness of breath, abdominal pain, nausea, vomiting, leg pain. Hospital Course Patient admitted for neurological workup and Neurology was consulted. Patient had imaging studies performed with no acute new issues appreciated. Patient was continued on home medications for relief of persistent headache. Neurology monitored her Dilantin levels and continued on home dosages with optimal levels. Patient still persisted with chronic headaches but no further seizure episodes appreciated. Patients presenting symptoms stabilized and patient felt stable for discharge home. Patients vitals and physical exam remained stable and patient was discharged home in good condition. Home Meds Reported Medications Hydromorphone Hcl* (Dilaudid*) 4 Mg Tablet, 4 MG PO BID PRN for PAIN, TAB 10/02/18 Lorazepam* (Ativan*) 2 Mg Tablet, 2 MG PO DAILY PRN for ANXIETY, #30 TAB 10/02/18 Phenytoin* Sodium Extended (Dilantin*) 300 Mg Capsule, 300 MG PO BID, CAP 10/02/18 Discontinued Reported Medications Hydrocodone/Acetaminophen (Secretary 10-325 Tablet) 1 Each Tablet, 1 TAB PO Q4 PRN for PAIN LEVEL 6-10, TAB 12/20/16 Diphenhydramine Hcl* (Benadryl*) 50 Mg Cap, 50 MG PO Q6 PRN for ITCHING, CAP 10/13/16 Follow-up Plan 1. Follow up with your primary care physician in 1 week 2. Follow up with your Neurologist as soon as possible especially if you need any medication refills 3. Take all medications as prescribed 4. If symptoms worsen, please return to your nearest emergency department Primary Care Provider Not On Staff Doctor Time spent on discharge: > 30 minutes Pending Labs Laboratory Tests Test 10/04/18 20:11 10/05/18 05:36 Phenytoin (Dilantin) Level 10.2 ug/ml (10.0-20.0) 12.2 ug/ml (10.0-20.0) GERARD MORALES MD Oct 05, 2018 17:39
== END 2018-10-05 17:17 | disposition home or self-care (01) | DRG 101 ==
LOC: E/R 15:55 → TEL 21:30
PROVIDERS: ADMIT Internal Medicine; ATTEND Internal Medicine
DX: G40.901 Epilepsy, unspecified, not intractable, with status epilepticus (principal); R51 Headache; Z87.820 Personal history of traumatic brain injury
CPT/HCPCS: 70450; 70551; 71045; 80048; 80053; 80185; 80307; 81001; 81025; 82550; 83735; 84100; 85025; 85610; 85730; 93306; 95819; 96374; 96375; 96376; J1165; J1170; J1200; J2060; J7030; J7040

== ENCOUNTER 2018-12-06 08:18 | Emergency (ER) | payer OTHER ==
[~2018-12-06] VITALS: Ht 160 cm; Wt 65.0 kg
[~2018-12-06 08:18] MED LIST changes: -BEN50 PO; -HYDR-3980 PO; +HYDR4TAB51 PO; +LORA-444 PO; +PHEN300C2 PO
[2018-12-06 08:20] VITALS: BP 111/85; PULSE 109; RESP 20; Ht 160 cm; Wt 65.0 kg
[2018-12-06] MEDS ORDERED: ONDANSETRON (ODT) 4 MG TAB ODT STA (08:54)
[2018-12-06] MEDS ORDERED: KETOROLAC 60 MG INJ IM STA (08:54)
[2018-12-06] MEDS ORDERED: SCOPOLAMINE 1.5 MG PATCH TRANSDERM ONE (09:30)
--- NOTE | 2018-12-06 10:02 | ERD ---
ER Documentation Chief Complaint Chief Complaint headache thats not getting better HPI 33-year-old female complaining of headache. Patient has had episodes of vomiting. She has a long history of headaches and migraines. Many years ago she was diagnosed with a brain tumor and had a craniotomy with biopsies. She is followed by neuro and had an appointment last week. Last seizure was yesterday and patient is not currently on medication as she was taken off it by her neurologist. LNMP 1 month ago. Patient states this is a normal headache. Denies any visual changes. Denies any head injuries or falls. Denies vomiting. Has not taken medications for pain. ROS All systems reviewed and are negative except as per history of present illness. Medications Home Meds Reported Medications Hydromorphone Hcl* (Dilaudid*) 4 Mg Tablet, 4 MG PO BID PRN for PAIN, TAB 10/02/18 Lorazepam* (Ativan*) 2 Mg Tablet, 2 MG PO DAILY PRN for ANXIETY, #30 TAB 10/02/18 Phenytoin* Sodium Extended (Dilantin*) 300 Mg Capsule, 300 MG PO BID, CAP 10/02/18 Allergies Allergies: Coded Allergies: prochlorperazine (Verified Allergy, Severe, 10/13/16) metoclopramide HCl (Verified Allergy, Unknown, ANAPHYLACTIC, 10/13/16) topiramate (Verified Allergy, Unknown, ANAPHYLACTIC, 10/13/16) methylprednisolone (Verified Adverse Reaction, Unknown, pt. 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 Conjunctivae are pink. Pupils equal, round, and reactive to light. There is no scleral icterus. Tympanic membranes clear bilaterally. Oropharynx clear. CHEST: Clear to auscultation bilaterally. There are no rales, wheezes or rhonchi. HEART: Regular rate and rhythm. No murmurs, clicks, rubs or gallops. EXTREMITIES: Equal pulses bilaterally. There is no peripheral clubbing, cy anosis or edema. No focal swelling or erythema. Full range of motion. NEUROLOGIC: Alert and oriented. Cranial nerves II through XII intact. Motor strength in all 4 extremities with 5 out of 5 strength. Sensation grossly intact. Normal speech and gait. Results 24 hrs Laboratory Tests Test 12/06/18 09:00 12/06/18 09:01 POC Beta HCG, Qualitative NEGATIVE Bedside Urine pH (LAB) 5.0 Bedside Urine Protein (LAB) Negative Bedside Urine Glucose (UA) 0.50% Bedside Urine Ketones (LAB) Negative Bedside Urine Blood Trace-intact Bedside Urine Nitrite (LAB) Negative Bedside Urine Leukocyte Esterase (L Negative Current Medications Medications Dose Sig/Dedra Start Time Status Last (Trade) Ordered Route PRN Stop Time Admin Dose Reason Admin Ketorolac 60 mg ONCE STAT 12/06/18 DC Tromethamine IM 08:54 12/06/18 (Toradol) 08:55 Ondansetron 4 mg ONCE STAT 12/06/18 DC HCl (Zofran ODT 08:54 12/06/18 Odt) 09:06 Scopolamine 1 patch ONCE ONCE 12/06/18 DC 12/06/18 TRANSDERM 09:30 12/06/18 09:29 (Transderm-Sc 09:31 op) Procedures/MDM ER course: Urinalysis negative. Patient given scopolamine patch. MDM: 33-year-old female presenting with headache. Upon reevaluation of patient's LAINEY and jan reports she has a long history of drug dependency. Patient has a chronic prescriber seen in [place] in our refrain from writing any additional narcotic medications. This was discussed at length with patient. Patient's neuro exam was within normal limits and I do not feel there is concern for intracranial or neuro deficit. I do not feel there is indication for CT scan at this time. Patient has drug-seeking behavior and will not be discharged or given strong narcotic medications in the emergency room. Patient states that she does have close follow-up with a neurologist and oncologist I recommend patient to have follow-up appointment in the next 1 to 2 days. Patient is discharged with strict ER precautions. All questions answered at discharge Departure Diagnosis: Primary Impression: Headache Condition: Stable Patient Instructions: Self-Care for Headaches Referrals: [facility] YOU HAVE RECEIVED A MEDICAL SCREENING EXAM AND THE RESULTS INDICATE THAT YOU DO NOT HAVE A CONDITION THAT REQUIRES URGENT TREATMENT IN THE EMERGENCY DEPARTMENT. FURTHER EVALUATION AND TREATMENT OF YOUR CONDITION CAN WAIT UNTIL YOU ARE SEEN IN YOUR DOCTORS OFFICE WITHIN THE NEXT 1-2 DAYS. IT IS YOUR RESPONSIBILITY TO MAKE AN APPOINTMENT FOR FOLOW-UP CARE. IF YOU HAVE A PRIMARY DOCTOR --you should call your primary doctor and schedule an appointment IF YOU DO NOT HAVE A PRIMARY DOCTOR YOU CAN CALL OUR PHYSICIAN REFERRAL HOTLINE AT IF YOU CAN NOT AFFORD TO SEE A PHYSICIAN YOU CAN CHOSE FROM THE FOLLOWING [facility] [address] [facility] [address] [facility] [address] [facility] [address] [facility] [address] [facility]. [facility]. [address] Additional Instructions: FOLLOW UP WITH YOUR PRIMARY CARE PHYSICIAN TOMORROW.Return to this facility if you are not improving as expected. LYNNETTE CASTILLO PA-C December 06, 2018 10:02
== END 2018-12-06 09:35 | disposition home or self-care (01) ==
LOC: FTE 08:18
DX: R51 Headache (principal)
CPT/HCPCS: 81003; 81025; Z7502; Z7610; 99283